=== PATIENT | female | born 1945 | race Hispanic/Latino ===

== ENCOUNTER 2017-12-10 16:55 | Inpatient (IN) | payer OTHER ==
[~2017-12-10] VITALS: Ht 162.6 cm; Wt 88.2 kg
[~2017-12-10 16:55] MED LIST: PERCOCET 5-3251 EACH PO; PREDNISONE20 M1 PO
--- NOTE | 2017-12-10 17:23 | ED GENERAL ADULT ---
History of Present Illness General Chief Complaint: Syncope and Near-Syncope Stated Complaint: BIBA FOR NEAR SYNCOPE Source: patient Exam Limitations: no limitations Allergies Coded Allergies: Sulfa (Sulfonamide Antibiotics) (Severe, SWELLING 11/26/17) Reconcile Medications Atorvastatin Calcium 10 MG TABLET 1 TAB PO DAILY HIGH CHOLESTEROL (Reported) Lisinopril 40 MG TABLET 1 TAB PO DAILY HTN (Reported) Multivit-Min/Iron/Folic/Lutein (Centrum Silver Women Tablet) 8 MG IRON-400 MCG- 300 MCG TABLET 1 TAB PO DAILY SUPPLEMENT (Reported) Triage Nurses Notes Reviewed? 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 Pt was at work and reports she was having difficult walking. Began to feel light headed and felt the numbness become more generalized over her entire body. Denies head, visual changes, head trauma, or prior stroke. No CP, abd pain, or back pain. (Julia Chacon) Vital Signs & Intake/Output Vital Signs & Intake/Output Vital Signs Date Time Temp Pulse Resp B/P B/P Pulse O2 O2 Flow FiO2 Mean Ox Delivery Rate 12/10 2049 97.8 68 16 140/86 99 Room Air 12/11 2019 68 16 142/84 99 Room Air 12/10 2004 97.6 68 16 140/80 99 Room Air 12/10 1950 69 16 140/84 98 Room Air 12/10 1935 Room Air 12/10 1935 73 14 144/86 98 Room Air 12/10 1920 79 18 159/92 98 Room Air 12/10 1905 68 16 140/84 97 Room Air 12/10 1850 69 16 146/78 97 Room Air 12/10 1835 73 16 160/80 98 Room Air 12/10 1815 69 160/90 12/10 1706 94.9 70 20 168/84 98 Room Air (Che JJ,Cedric Kimbrough) Past History Travel History Traveled to [place] past 21 day No Medical History Any Pertinent Medical History? 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 No (Julia Chacon) Review of Systems Review of Systems Constitutional: Reports: no symptoms. EENTM: Reports: no symptoms. Respiratory: Reports: no symptoms. Cardiovascular: Reports: no symptoms. GI: Reports: no symptoms. Genitourinary: Reports: no symptoms. Musculoskeletal: Reports: no symptoms. Skin: Reports: no symptoms. Neurological/Psychological: Reports: see HPI. Hematologic/Endocrine: Reports: no symptoms. Immunologic/Allergic: Reports: no symptoms. (Julia Chacon) Physical Exam Physical Exam General Appearance: well developed/nourished, no apparent distress, alert, awake , comfortable Head: atraumatic, normal appearance Eyes: Bilateral: normal appearance, PERRL, EOMI. Neck: normal inspection Respiratory: normal breath sounds, lungs clear Cardiovascular: regular rate/rhythm Gastrointestinal: soft, non-tender Back: normal inspection Extremities: normal inspection Neurologic/Psych: awake, alert, oriented x 3, normal mood/affect, television receiver analyzer II-XII nml as tested, cerebellar function intact, no sensory deficits no motor deficits to upper extremities or left lower extremity +motor deficit to right lower extremity, unable to lift against gravity Skin: intact, normal color, warm/dry Core Measures ACS in differential dx? No CVA/TIA Diagnosis: Yes NIH Stroke Scale (24 Hours) NIH Stroke Scale (24 Hours) Response Value Level of Consciousness alert 0 LOC Questions answers both correctly 0 LOC Commands obeys both correctly 0 Best Gaze normal 0 Visual Dumont no visual loss 0 Facial Paresis normal 0 Motor Arm - Left no drift 0 Motor Arm - Right no drift 0 Motor Leg - Left no drift 0 Motor Leg - Right no effort against gravity 3 Limb Ataxia no ataxia 0 Sensory normal 0 Best Language no aphasia 0 Dysarthria normal articulation 0 Total 3 Date Last Known Well: 12/10/17 Time Last Known Well: 1600 Symptom start date: 12/10/17 Symptom start time: 1600 Sepsis Present: No Sepsis Focused Exam Completed? No (Julia Chacon) Progress Differential Diagnoses I considered the following diagnoses in my evaluation of the patient: [TIA/CVA vs radiculopathy vs aortic dissection vs metabolic derangement] Initial ED EKG: NSR, no ST T wave changes (Julia Chacon) Plan of Care: Orders Procedure Date/time Status LIPID PANEL 12/11 06 Active Pathway - chart 12/11 2039 Active Vital Signs 12/11 2039 Active Pathway - chart 12/10 2036 Active House Staff 12/10 2036 Active Patient Data 12/10 2036 Active Code Status 12/10 2036 Active Patient Data 12/10 2017 Active Admit to inpatient 12/10 194 Active Turk, Insertion/Removal/Asses 12/10 1938 Active CULTURE,URINE 12/10 193 Active EKG 12/10 1850 Active EKG 12/10 1848 Active FingerStick- Glucose 12/10 1714 Active TROPONIN LEVEL 12/10 171 Complete PARTIAL THROMBOPLASTIN TIME 12/10 171 Complete PROTHROMBIN TIME 12/10 1712 Complete MAGNESIUM 12/10 171 Complete FIBRINOGEN LEVEL 12/10 171 Complete COMPREHENSIVE METABOLIC PANEL 12/10 171 Complete CBC WITHOUT DIFFERENTIAL 12/10 171 Complete EKG 12/10 1702 Active VTE Mechanical Prophylaxis 12/10 UNK Active Vital Signs 12/10 UNK Active Activity/Ambulation 12/10 UNK Active Current Medications Sig/Kelly Start time Last Medication Dose Stop Time Status Admin Aspirin Buffered 81 MG DAILY 12/11 0900 UNVr (Ecotrin) Laboratory Tests 12/10/17 1752: Anion Gap 10, Estimated GFR > 60, BUN/Creatinine Ratio 21.4, Glucose 105 H, Calcium 9.4, Magnesium 2.0, Total Bilirubin 0.4, AST 22, ALT 23, Alkaline Phosphatase 135 H, Troponin I < 0.01, Total Protein 7.0, Albumin 3.8, Globulin 3.2, Albumin/Globulin Ratio 1.2, PT 14.2 H, INR 1.30 H, APTT 30, Fibrinogen Activity 434 H, CBC w Diff NO MAN DIFF REQ, RBC 4.83, MCV 85.1, MCH 28.5, MCHC 33.4, RDW 13.6, MPV 7.4, Gran % 39.2 L, Lymphocytes % 49.5, Monocytes % 8.5, Eosinophils % 2.4, Basophils % 0.4, Absolute Granulocytes 1.8, Absolute Lymphocytes 2.3, Absolute Monocytes 0.4, Absolute Eosinophils 0.1, Absolute Basophils 0 Microbiology 12/10 1944 URINE ROUT: Urine Culture - RECD Initial NIH stroke scale 3 CTA head and neck unremarkable Discussed with Dr. Barfield from neuro who instructed to administered tpa Discussed benefits vs risks with pt and her , both are amenable to tpa, consent signed tpa initiated and shortley after pt began to experience VALLEJO, and abd pain radiating to her chest and back, tpa was shut off, and pt sent for CT head, chest, abd, pelvis. Discussed prelim verbal read with [place] radiology who reported no obvious acute bleeding. Pt now reports gradual self improvement in above symptoms. TPA will remain off. Discussed with hospitalist and will admit to ICU. Discussed with EDMD as well. (Julia Chacon) (Cedric Bolton MD) Departure Departure Disposition: STILL A PATIENT Condition: Stable Clinical Impression Primary Impression: CVA (cerebral vascular accident) Referrals: Patient Has No Primary Care Dr (PCP/Family) Departure Forms: Customer Survey General Discharge Information Admission Note Spoke With: Erin Dougherty MD Documentation of Exam: Documentation of any treatments & extenuating circumstances including Concerns Regarding Discharge (functional status, medication knowledge or non-compliance, living conditions, etc.) that warrant an admission rather than observation: [ serial neuro exams, post TPA monitoring, HD monitoring, neurology eval] (Julia Chacon) PA/TANK HOUSE OPERATOR HELPER Co-Sign Statement Statement: ED Attending supervision documentation- [X] 12/10/2017 6:09:29 PM I saw and evaluated the patient. I have also reviewed all the pertinent lab results and diagnostic results. I agree with the findings and the plan of care as documented in the PA's/TANK HOUSE OPERATOR HELPER's documentation. Patient presents for evaluation of a near syncopal episode followed by right lower extremity numbness and weakness. Symptoms began abruptly 4 PM this afternoon while the patient was at work. She denies any symptoms prior to 4 PM. Physical examination reveals no cranial nerve deficits. Upper extremity examination is normal. Lower extremity examination reveals weakness of the right lower extremity with elevation of the leg off the stretcher. Patient's right foot dorsiflexion is weak compared with the left (4 over 5 with some spasticity) whereas plantar flexion is normal bilaterally., [] I have reviewed the ED Record and agree with the PA's/TANK HOUSE OPERATOR HELPER's documentation. [] Additions or exceptions (if any) to the PAs/TANK HOUSE OPERATOR HELPER's note and plan are summarized below: [] (Che JJ,Cedric Kimbrough) Critical Care Note Critical Care Note Critical Care Time: 75-104 min (Michell PERKINS,Julia)
--- NOTE | 2017-12-10 17:39 | CT SCAN REPORT ---
EXAMINATION: CT HEAD WITHOUT CONTRAST CLINICAL INFORMATION: Right leg weakness. COMPARISON: None TECHNIQUE: Contiguous axial imaging was performed from the skull base to vertex without intravenous administration of contrast. DLP: 605 mGy-cm FINDINGS: Brain parenchyma: No acute findings. Felton-white matter differentiation is well preserved. No evidence of a major vascular territory infarction, hemorrhage, mass or midline shift. No evidence of a dense middle cerebral artery sign or insular ribbon sign. Cerebrospinal fluid spaces: Normal. No hydrocephalus or extra-axial fluid collections. Cerebellum and brainstem: Unremarkable. The 4th ventricle is midline in position. The cerebellopontine angles are normal. Calvarium and temporomandibular joints: Calvarium is intact. Mastoid air cells and middle ear cavities are well aerated. The TMJs are normal. Paranasal sinuses and orbits: The visualized paranasal sinuses are well aerated. The orbits and globes are unremarkable. Other: No acute findings in the visualized extracranial soft tissues. IMPRESSION: No acute intracranial pathology. The negative test result was discussed with Julia Galarza of the Emergency Room at 5:33 PM on 12/10/2017 and it was ascertained that the content of the findings was understood at the time of the direct communication.
[2017-12-10 18:02] LABS: ABSOLUTE BASOPHIL COUNT 0 /CUMM (0.0-0.2); ABSOLUTE EOSINOPHIL COUNT 0.1 /CUMM (0.0-0.7); ABSOLUTE GRANULOCYTE CT 1.8 /CUMM (1.4-6.5); ABSOLUTE LYMPH COUNT 2.3 /CUMM (1.2-3.4); ABSOLUTE MONOCYTE COUNT 0.4 /CUMM (0.10-0.60); BASOPHIL % 0.4 % (0.0-2.0); EOSINOPHIL % 2.4 % (0-5); GRANULOCYTE % 39.2 % (42.2-75.2); HEMATOCRIT 41.1 % (37-47); MEAN CORPUSCULAR HGB 28.5 PG (27.0-31.0); MEAN CORPUSCULAR HGB CONC 33.4 G/DL (33.0-37.0); MEAN CORPUSCULAR VOLUME 85.1 FL (81.0-99.0); MEAN PLATELET VOLUME 7.4 FL (7.4-10.4); PLATELET COUNT 217 /CUMM (130-400); RBC DISTRIBUTION WIDTH 13.6 % (11.5-14.5); RED BLOOD CELL CT 4.83 /CUMM (4.20-5.40); WHITE BLOOD CELL COUNT 4.6 /CUMM (4.8-10.8)
--- NOTE | 2017-12-10 18:09 | CT SCAN REPORT ---
EXAMINATION: CT ANGIOGRAM OF THE HEAD CT ANGIOGRAM OF THE NECK CLINICAL INFORMATION: CVA. Right leg weakness. COMPARISON: Concurrent CT scan of the head 12/10/2017. TECHNIQUE: Test bolus series followed by intravenous administration 95 mL of Optiray 320. Helical imaging was performed in the axial plane from the mediastinum to the skull vertex. The degree of stenosis is based off NASCET criteria. The data was processed at the cytometry technologist workstation for generation of MIP images. Three-dimensional volume rendered reformatted images were also generated at an offline 3-D workstation. DLP: 1757.34 mGy-cm FINDINGS: CT Head: There is no evidence of acute intracranial hemorrhage or territorial infarction. No abnormal mass-effect or midline shift is seen. Bautista to white matter differentiation is well preserved. No extra-axial fluid collections are identified. Mild serpiginous enhancement in the left basal ganglia may be consistent with a small developmental venous anomaly (images 136 through 147/522). There is no other parenchymal or leptomeningeal enhancement. The ventricles are normal in size. There is no abnormal attenuation within the brain parenchyma. There are no acute osseous findings. There is hyperostosis frontalis interna. The mastoid air cells and visualized portions of the paranasal sinuses are well-aerated. CTA Neck: There is a classic configuration of the arch of the aorta. There is mild atheromatous calcification of the posterior aortic arch laterally. The great vessels of the neck are widely patent. The subclavian arteries appear normal bilaterally. The common carotid arteries have normal caliber. There are mild atheromatous calcifications of the distal right common carotid artery. There is no significant stenosis at the left or right carotid bifurcations. The internal carotid arteries in the neck bilaterally have uniform and normal caliber. The origins of both vertebral arteries are well seen and appear normal. Both vertebral arteries are widely patent and demonstrate good opacification throughout their cervical course. The left vertebral artery is slightly dominant. Nonvascular: The left lobe of the thyroid gland is enlarged and has heterogenous density. It measures approximately 3.0 x 2.2 x 4.4 cm in oblique AP, transverse and craniocaudal dimensions. There appears to be a 1.2 x 0.9 cm nodule in the region of the isthmus slightly more caudad. There are multiple surgical clips in the left thyroid bed, consistent sequelae of prior partial thyroidectomy. There is no cervical lymphadenopathy. The visualized upper lung killian are well-aerated. There are moderate spondylitic changes in the cervical spine. CTA Head: There are mild atheromatous calcifications of the cavernous internal carotid arteries bilaterally. The supraclinoid internal carotid arteries and the internal carotid artery bifurcations are unremarkable. The A1 segment of the right anterior cerebral artery is uniformly thin compared to the left, which can be a normal variant. The bilateral middle and left anterior cerebral arteries demonstrate normal caliber with no evidence of focal stenosis, aneurysm or vascular malformation. There is normal arborization of the middle cerebral artery branches. The anterior communicating artery is normal. In the posterior circulation, the left vertebral artery is dominant. The vertebral arteries intradurally have normal caliber. The basilar artery appears normal. The posterior cerebral arteries have normal caliber. The venous sinuses opacify normally. IMPRESSION: 1. There are no acute bleeds or territorial infarcts. No masses are demonstrated. Serpiginous enhancement in the left basal ganglia may be consistent with a developmental venous anomaly. 2. There are no focal stenoses, occlusions or aneurysms in the cervical and intracranial circulations. There is minimal atheromatous calcification. 3. The patient is is status post left hemithyroidectomy. The right lobe of the thyroid gland is enlarged with heterogenous density. A small isthmic thyroid nodule is also noted. Correlate with surgical history.
[2017-12-10 18:14] LABS: PT 14.2 SEC (9.4-12.5); PTT 30 SEC (25-37)
[2017-12-10] MEDS ORDERED: LISINOPRIL40 M1 PO (19:55)
[2017-12-10] MEDS ORDERED: ATORVASTATIN CA10 M1 PO (19:55)
[2017-12-10] MEDS ORDERED: CENTRUM SILVER1 EACH PO (19:57)
--- NOTE | 2017-12-10 20:03 | CT SCAN REPORT ---
EXAMINATION: CT HEAD WITHOUT CONTRAST CLINICAL INFORMATION: Headache status post TPA. Assess for intracranial bleed. COMPARISON: CT head and CTA of the head and neck earlier 12/10/2017. TECHNIQUE: Contiguous axial imaging was performed from the skull base to vertex without intravenous administration of contrast. DLP: 562.47 mGy-cm FINDINGS: There is some residual contrast noted in the vascular structures from the CTA of the head and neck obtained earlier 12/10/2017. There is no evidence of acute intracranial hemorrhage or territorial infarction. No abnormal mass effect or midline shift is seen. Bautista to white matter differentiation is well preserved. No extra-axial fluid collections are identified. The ventricles are normal in size. Small densities are noted in the left basal ganglia and in the posterior right torres radiata, which were present on the prior noncontrast CT scan, likely small calcification. There are no acute osseous findings. There is hyperostosis frontalis interna. The soft tissues are unremarkable. The mastoid air cells and visualized portions of the paranasal sinuses are well aerated. IMPRESSION: 1. There are no acute bleeds. No acute territorial infarcts are demonstrated.
--- NOTE | 2017-12-10 20:09 | CT SCAN REPORT ---
EXAMINATION: CT CHEST, ABDOMEN AND PELVIS WITHOUT CONTRAST CLINICAL INFORMATION: Left upper quadrant pain. Chest pain. Back pain. COMPARISON: None. TECHNIQUE: Multidetector volumetric CT imaging of the chest, abdomen and pelvis was obtained without oral or intravenous contrast. Coronal and sagittal reformatted images performed at CT scanner. Patient was given IV contrast for a CT angiogram prior to this study. DLP: 974.18 mGy-cm. FINDINGS: CT CHEST: Lungs: There is linear scarring at the lung bases bilateral. There is no acute change. There is no infiltrate. Central bronchial airways are open. Mediastinum: No acute abnormality. No hematoma or fluid collection. There is atherosclerotic vascular calcifications of aorta. No significant lymphadenopathy. There is nodular heterogeneity of the right lobe of the thyroid measuring 3.4 x 2.6 cm. Left lobe of the thyroid is surgically absent. Pleura: There is no pleural effusion. No pleural mass or thickening. Axilla: No lymphadenopathy. CT ABDOMEN AND PELVIS: LIVER, GALLBLADDER, AND BILIARY TREE: The liver is normal in size, shape, and attenuation. No focal hepatic lesion or biliary ductal dilatation is present. The gallbladder is unremarkable with no evidence of radiopaque gallstones, gallbladder wall thickening, or obvious pericholecystic inflammatory changes. PANCREAS: No acute change of the pancreas. No mass. No pancreatic duct dilatation. SPLEEN: Spleen normal in size and contour. No focal lesion. ADRENAL GLANDS: Adrenal glands are normal in size. No focal mass. KIDNEYS AND URETERS: The kidneys are normal in size, shape, and attenuation. No hydronephrosis, hydroureter, or calculi seen. No perinephric stranding. There is contrast within the collecting systems of the kidneys and the bladder from the previously injected intravenous contrast. BLADDER: Turk catheter within the bladder. Bladder is nearly empty. No acute abnormality. GASTROINTESTINAL TRACT: There are diverticula of the sigmoid colon and descending colon without diverticulitis. No acute change of the bowel. No bowel obstruction. No bowel wall thickening or edema. Moderate to large-volume of stool throughout the colon. The appendix is not seen. There is no inflammation the mesentery. The small bowel loops are unremarkable. MESENTERY: No focal inflammation. No free fluid. No free air. ABDOMINAL WALL: There is a fat-containing umbilical hernia. The defect at the anterior abdominal wall measures 2 cm transverse. The herniated fat pocket measures 2 x 2 by 2 cm. LYMPH NODES: Normal. VASCULAR: Unremarkable. PELVIC VISCERA: Is atherosclerotic vascular wall calcification of distal aorta and iliac arteries without aneurysm. OSSEOUS STRUCTURES: Multilevel degenerative spondylosis spine with endplate spur and facet joint arthrosis. There is a grade 1 anterolisthesis of L4 on L5 due to facet joint disease. IMPRESSION: 1. No acute abnormality CT of the chest, abdomen or pelvis. 2. Nodular heterogeneity of the right lobe of thyroid. This can be further assessed with thyroid ultrasound. The left lobe of thyroid has been surgically removed.
--- NOTE | 2017-12-10 21:27 | History & Physical ---
Owen JJ,Carrie 12/10/172119: General Information and [facility] MD Statement: I have seen and personally examined BOBBY IRVING and documented this H&P. The patient is a 72 year old F who presented with a patient stated chief complaint of [weakness in the right side of the leg]. Source of Information: patient, family, old records Exam Limitations: no limitations History of Present Illness: Patient is a 72-year-old female with past medical history of hypertension, hyperlipidemia, history of renal cell carcinoma status post partial nephrectomy, coronary artery disease with history of recurrent angina presented with chief complaints of right-sided lower leg weakness. According to the patient she was at work and somebody told that it is now 4:00 and trying to leave. As she walked she felt that she was not able to lift her right leg, it was totally numb and she need to drag it. She took the support of the wall and called her coworker to help her in sitting. She continued to have weakness and later she felt difficulty in breathing and started feeling burning sensation all over inside the body the dizziness. Her coworker called 911 and brought her here. She was having associated headache, dizziness. Of note she also complained that she had nosebleed yesterday which was milder in nature. 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 She denies for any blurry vision, difficulty in swallowing, weakness in upper hand and the left leg, incontinence of the stool in the urine, history of seizures, history of fall or hitting her head. She denies for any history of strokes in the past, fall. Past medical history - Renal cell carcinoma status post partial nephrectomy of the right kidney(2013); repeated ultrasound on 10/13/2017 was normal -(Jayaln Cole MD) History of hyperlipidemia History of hypertension History of coronary artery disease, [place], recurrent angina(2013, 2014, 2015, 2016) -following Dr. Mena; Rashad/Amauri) Right shoulder rotator cuff tear Left leg Achilles tendon repair(February 2017) Hypovitaminosis D (Last 24.7;12/10/2017) Surgical history - History of removal of the cyst from the breast History of hysterectomy 1990 History of right-sided partial nephrectomy 2013 secondary to renal cell carcinoma History of removal of thyroid nodule(15 years ago, at the ) Allergies -sulfa medication leading to swelling and hives Family history -significant for the cancer Mother - of bleeding, secondary to rupture of aneurysm of abdominal aorta Sister-pancreatic cancer, cancer of the lymph node Father-diabetes, hypertension Personal history -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 PCP- Allergies/Medications Allergies: Coded Allergies: Sulfa (Sulfonamide Antibiotics) (Severe, SWELLING 11/26/17) Home Med list Atorvastatin Calcium 10 MG TABLET 1 TAB PO DAILY HIGH CHOLESTEROL (Reported) Lisinopril 40 MG TABLET 1 TAB PO DAILY HTN (Reported) Multivit-Min/Iron/Folic/Lutein (Centrum Silver Women Tablet) 8 MG IRON-400 MCG- 300 MCG TABLET 1 TAB PO DAILY SUPPLEMENT (Reported) Past History Travel History Traveled to [place] past 21 day No Medical History Neurological: NONE EENT: NONE Cardiovascular: hypertension, hyperlipidemia Respiratory: NONE Gastrointestinal: NONE Hepatic: NONE Renal: NONE Musculoskeletal: NONE Psychiatric: NONE Endocrine: hypothyroidism Blood Disorders: NONE Cancer(s): NONE CLINICAL EDUCATOR/Reproductive: NONE Surgical History Surgical History: history of hysterectomy(1990) hx of thyroidectomy (15yrs) Hx of right side partial nephrectomy (2015) Past Family/Social History Family History Relations & Conditions if any SISTER (hx of pancreatic cancer, cancer of lymphnode). MOTHER (hisotry of abdominal aneurysm). FATHER (History of diabetes, hypertension). Review of Systems Review of Systems Constitutional: Reports: no symptoms, weakness. Cardiovascular: Reports: no symptoms. Respiratory: Reports: no symptoms. GI: Reports: abdominal pain. Genitourinary: Reports: no symptoms, pain. Exam & Diagnostic Data Last 24 Hrs of Vital Signs/I&O Vital Signs Date Time Temp Pulse Resp B/P B/P Pulse O2 O2 Flow FiO2 Mean Ox Delivery Rate 12/10 2049 97.8 68 16 140/86 99 Room Air 12/11 2019 68 16 142/84 99 Room Air 12/10 2004 97.6 68 16 140/80 99 Room Air 12/10 1950 69 16 140/84 98 Room Air 12/10 1934 Room Air 12/10 1934 73 14 144/86 98 Room Air 12/10 1920 79 18 159/92 98 Room Air 12/10 1905 68 16 140/84 97 Room Air 12/10 1850 69 16 146/78 97 Room Air 12/10 1835 73 16 160/80 98 Room Air 12/10 1815 69 160/90 12/10 1706 94.9 70 20 168/84 98 Room Air Physical Exam General Appearance Alert, Oriented X3, Cooperative, No Acute Distress HEENT Atraumatic, PERRLA, EOMI Neck Supple, No JVD Cardiovascular Normal S1, Normal S2 Lungs Clear to Auscultation, Normal Air Movement Abdomen Soft, tenderness generalized Neurological Normal Speech, Normal Tone, Sensation Intact, Cranial Nerves 3-12 NL, Reflexes 2+, right lower leg 3/5 Extremities No Clubbing, No Cyanosis, No Edema Vascular Normal Pulses, Pulses Symmetrical Last 24 Hrs of Labs/Jonathan: Laboratory Tests 12/10/17 1752: Anion Gap 10, Estimated GFR > 60, BUN/Creatinine Ratio 21.4, Glucose 105 H, Calcium 9.4, Magnesium 2.0, Total Bilirubin 0.4, AST 22, ALT 23, Alkaline Phosphatase 135 H, Troponin I < 0.01, Total Protein 7.0, Albumin 3.8, Globulin 3.2, Albumin/Globulin Ratio 1.2, PT 14.2 H, INR 1.30 H, APTT 30, Fibrinogen Activity 434 H, CBC w Diff NO MAN DIFF REQ, RBC 4.83, MCV 85.1, MCH 28.5, MCHC 33.4, RDW 13.6, MPV 7.4, Gran % 39.2 L, Lymphocytes % 49.5, Monocytes % 8.5, Eosinophils % 2.4, Basophils % 0.4, Absolute Granulocytes 1.8, Absolute Lymphocytes 2.3, Absolute Monocytes 0.4, Absolute Eosinophils 0.1, Absolute Basophils 0 Microbiology 12/10 1944 URINE ROUT: Urine Culture - RECD Assessment/Plan Assessment: Patient is a 72-year-old female with past medical history of hypertension, hyperlipidemia, history of renal cell carcinoma status post partial nephrectomy, coronary artery disease with history of recurrent angina presented with chief complaints of right-sided lower leg weakness. According to the patient she was at work and somebody told that it is now 4:00 and trying to leave. As she walked she felt that she was not able to lift her right leg, it was totally numb and she need to drag it. She took the support of the wall and called her coworker to help her in sitting. She continued to have weakness and later she felt difficulty in breathing and started feeling burning sensation all over inside the body the dizziness. Her coworker called 911 and brought her here. ED course - Vital signs-temperature 94.9, pulse 70, respiratory 20, blood pressure 168/84, SPO2 98% on room air. Blood workup showed-WBC 4.6, hemoglobin 13.8, hematocrit 41.1, platelet count 217, granulocyte 39.2, sodium 141, potassium 4.2, chloride 102, carbon DEXA 29, anion gap 10, BUN 15, creatinine 0.7, glucose 105, calcium 9.4, magnesium 2.0, total bilirubin 0.4, AST 22, ALT 23, alkaline phosphatase 135, troponin I less than 0.01, albumin 3.8, PT/INR 14.2/1.30, APTT 30, fibrinogen activity 434, CT scan of the head -no any acute intracranial pathology. CT of the neck, head - 1. There are no acute bleeds or territorial infarcts. No masses are demonstrated. Serpiginous enhancement in the left basal ganglia may be consistent with a developmental venous anomaly. 2. There are no focal stenoses, occlusions or aneurysms in the cervical and intracranial circulations. There is minimal atheromatous calcification. 3. The patient is is status post left hemithyroidectomy. The right lobe of the thyroid gland is enlarged with heterogenous density. A small isthmic thyroid nodule is also noted. Correlate with surgical history. Patient was given TPA followed by acute onset of severe abdominal pain radiating to the back and the chest pain, although patient was hemodynamically stable. Patient underwent, CT scan of the head, chest and abdomen-which were negative for any acute hemorrhage. It was decided to admit the patient to the ICU for further evaluation and management. Assessment and plan- Patient is 72-year-old female with multiple risk factor for stroke including hypertension, hyperlipidemia, obesity, history of coronary artery disease, noncompliance with aspirin presented with acute onset of right-sided leg weakness. CT scan was negative for any hemorrhagic stroke. Discussed with neurologist advised for TPA. She was last seen normal at 4 PM and TPA was given around 6:15. After TPA she had sudden onset of pain in the abdomen radiating to back and chest pain. Whole body CT scan was negative for any acute hemorrhage. We admitted the patient to the ICU. After coming to the ICU, she again had episode of slight weakness in the right hand. We advised for neuro check and if get worse than decided to do CT scan of the head to rule out any hemorrhagic transformation. Will follow neurology and cardiology recommendation. We will do routine workup to know the cause of the stroke including echocardiogram, serial EKGs, troponin, repeat MRI in 24 hours. Acute stroke, status post TPA possibly secondary to thromboembolism/ atherosclerotic /cardioembolism. - * We will admit the patient to ICU * Neuro check every 30 minutes for 6 hours followed by 1 hour for 24 hours. * Blood pressure check every 30 minutes for 6 hours followed by 1 hours for 24 hours. Target blood pressure is less than 180/150 if more than that and we will try IV labetalol. * repeat MRI of the head in 24 hours * Patient passed bedside swallow evaluation. We will do a formal swallow evaluation tomorrow * PT/OT * Elevate the head end of the back * Watch for the bleeding * We will start patient on tablet atorvastatin 80 mg daily now and Aspirin 81mg after 24 hrs. * We will check CBC, BMP, PT/PTT, EKG, lipid profile tomorrow * Follow-up echocardiogram. Chronic medical condition hypertension, hyperlipidemia, arthritis - * We will hold antihypertensive for now. * will start patient on high-dose of atorvastatin; tablet atorvastatin 80 mg daily * Avoid NSAIDs * Injection morphine/Dilaudid as needed for the pain. Right-sided systemic thyroid nodule * She will need outpatient thyroid ultrasound for further evaluation and management. Please get the records from [facility] regarding her cardiac evaluation. Diet -regular heart healthy diet DVT prophylaxis -we will avoid ALPS/heparin for next 24 hours CODE STATUS -full code As Ranked By This Provider Problem List: 1. CVA (cerebral vascular accident) 2. Hyperlipidemia 3. Hypertension Core Measures/Misc (03/08) Acute Coronary Syndrome ACS Diagnosis: No Congestive Heart Failure Congestive Heart Failure Diagnosis No Cerebrovascular Accident CVA/TIA Diagnosis: Yes NIH Stroke Scale: Total 2 Date Last Known Well: 12/10/17 Time Last Known Well: 1600 Symptom Start Date: 12/10/17 Symptom Start Time: 1600 Swallow Evaluation Pass Current/Past Hx AFib/AFlutter No Comment TPA was given VTE (View Protocol) VTE Risk Factors Age>40 No Mechanical VTE Prophylaxis d/t N/A MechProphylax Ordered No VTE Pharm Prophylaxis d/t Medical Contraindication (given tpa) Sepsis (View protocol) Sepsis Present: No If YES complete Sepsis Event Note If YES complete Sepsis Event Note Erin Dougherty MD 12/10/17 1837: Core Measures/Misc (03/08) Sepsis (View protocol) If YES complete Sepsis Event Note If YES complete Sepsis Event Note Attending MD Review Statement Attending Statement Attending MD Statement: examined this patient, discuss w/resident/PA/LICENSED LAND SURVEYOR, agreed w/resident/PA/LICENSED LAND SURVEYOR, reviewed EMR data (avail) Attending Assessment/Plan: 72F PMH HTN, HLD, CAD, hypothyroidism presenting with acute onset of right leg weakness. Was in her usual state of health when she suddenly felt as if she was dragging her right leg and could not move it. She soon after felt chest tightnesss and lighteaded, and 911 was called by coworker. In ER, her right leg had 0/5 strength, per ER provider. Sensation was intact, and neuro exam was otherwise intact. Decision was made to give patient tPA. CTA head and neck were negative. tPA bolus was given. After 30 minutes of tPA infusion, patient experienced mid-sternal chest pain without radiation and headache that she described as when she takes nitro-glycerin. tPA was then stopped. When seen by me, patient reported chest pain and headache resolved. Her only complaint at this time is right leg weakness, which is mildly improved but still persists. She has 4/5 strength on platar and dorsiflexion, but is unable to flex at the thigh or knee, though she is able to move her leg while on the bed, which is an improvement from earlier. Sensation and reflexes are intact. Cranial nerves and remaining extremity exam is intact. Cerebellar tests normal. Gait deferred. Labs reviewed, EKG NSR. 1. Acute ischemic tPA 2. Right leg paralaysis 3. History of CAD Plan - Admit to ICU - Vitals and neuro checks per tPA protocol - No blood draws or sticks for 24 hours - Continue statin - Passed bedside swallow - Neurology consult - MRI head - If any change in symptoms or mental status obtain stat head CT to evaluate for hemorrhage
[2017-12-10 22:00] VITALS: BP 140/80
--- NOTE | 2017-12-10 23:25 | Admission Certification ---
Admission Certification Certification Statement - As attending physician, I certify that at the time of - admission, based on clinical presentation, severity of - symptoms, need for further diagnostic testing and - therapeutic interventions, and risk of adverse outcomes - without in-hospital treatment, in my clinical assessment, - this patient requires an acute hospital stay for a minimum - of two nights or longer. I have also considered psychsocial - factors such as support system, advanced age, financial - issues, cognitive issues, and failed out-patient treatments, - past re-admission history, safety of patient, and lack of - compliance as applicable. Specific rationale supporting this admission is: Stroke s/p tPA
[2017-12-11] VITALS: BP 150/90
[2017-12-11 06:30] LABS: ABSOLUTE BASOPHIL COUNT 0 /CUMM (0.0-0.2); ABSOLUTE EOSINOPHIL COUNT 0.1 /CUMM (0.0-0.7); ABSOLUTE GRANULOCYTE CT 1.7 /CUMM (1.4-6.5); ABSOLUTE LYMPH COUNT 1.8 /CUMM (1.2-3.4); ABSOLUTE MONOCYTE COUNT 0.4 /CUMM (0.10-0.60); BASOPHIL % 0.5 % (0.0-2.0); EOSINOPHIL % 2.8 % (0-5); GRANULOCYTE % 42.6 % (42.2-75.2); HEMATOCRIT 38.6 % (37-47); MEAN CORPUSCULAR HGB 28.7 PG (27.0-31.0); MEAN CORPUSCULAR HGB CONC 33.5 G/DL (33.0-37.0); MEAN CORPUSCULAR VOLUME 85.6 FL (81.0-99.0); MEAN PLATELET VOLUME 7.2 FL (7.4-10.4); PLATELET COUNT 191 /CUMM (130-400); RBC DISTRIBUTION WIDTH 13.4 % (11.5-14.5); RED BLOOD CELL CT 4.51 /CUMM (4.20-5.40); WHITE BLOOD CELL COUNT 3.9 /CUMM (4.8-10.8)
[2017-12-11 06:37] LABS: PT 14.2 SEC (9.4-12.5); PTT 30 SEC (25-37)
--- NOTE | 2017-12-11 07:17 | Cons- CRCU ---
Bronson Farmer 12/11/17 0716: General Information and HPI Consulting Request Date of Consult: 12/11/17 Requested By: Dr MACHUCA Reason for Consult: CVA post TPA Source of Information: patient Exam Limitations: no limitations History of Present Illness: This is a 72-year-old female with past medical history of hypertension, hyperlipidemia, history of renal cell carcinoma status post partial nephrectomy, coronary artery disease with history of 3 previous heart attacks for which she was admitted to [facility] and reports to have had cardiac catheterization without stent placement. She was on aspirin and brillinta but they stopped brillinta in 2016 and she is not compliant on her aspirin. She presented to [facility] with sudden onset of right-sided lower leg weakness. According to the patient she was at work and somebody told her that it is was 4: 00PM time to leave when she noted that she could not move her right lower limb and trying to leave. As she walked she felt that she was not able to lift her right leg, it was totally numb and she need to drag it. She took the support of the wall and called her coworker to help her in sitting. She continued to have weakness and later she felt difficulty in breathing and started feeling burning sensation all over inside the body the dizziness. On the same time she felt weakness on her right upper limp. She denies experiencing this kind of episode before and denies any blood in her vision, inability to speak, aspiration on her saliva or weakness on the face. Allergies/Medications Allergies: Coded Allergies: Sulfa (Sulfonamide Antibiotics) (Severe, SWELLING 11/26/17) Home Med List: Atorvastatin Calcium 10 MG TABLET 1 TAB PO DAILY HIGH CHOLESTEROL (Reported) Lisinopril 40 MG TABLET 1 TAB PO DAILY HTN (Reported) Multivit-Min/Iron/Folic/Lutein (Centrum Silver Women Tablet) 8 MG IRON-400 MCG- 300 MCG TABLET 1 TAB PO DAILY SUPPLEMENT (Reported) Review of Systems Review of Systems Constitutional: Denies: chills, fever. EENTM: Denies: no symptoms. Cardiovascular: Denies: chest pain, palpitations. Respiratory: Denies: cough, short of breath. GI: Denies: abdominal pain, nausea, vomiting. Genitourinary: Denies: no symptoms. Musculoskeletal: Reports: muscle stiffness. Skin: Denies: no symptoms. Neurological/Psychological: Denies: no symptoms. Hematologic/Endocrine: Denies: no symptoms. 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 MOTHER (hisotry of abdominal aneurysm). FATHER (History of diabetes, hypertension). Psychosocial History Where Do You Live? Home Smoking Status: Former Smoker Functional Ability ADLs Independent: dressing, eating, toileting, bathing. Ambulation: independent IADLs Independent: shopping, housework, finances, food prep, telephone, transportation , medication admin. Employment History Employment: Employed Exam & Diagnostic Data Last 24 Hrs of Vital Signs/I&O Vital Signs Date Time Temp Pulse Resp B/P B/P Pulse O2 O2 Flow FiO2 Mean Ox Delivery Rate 12/11 0400 98 Room Air 12/11 0000 97.3 66 17 150/90 100 Room Air 12/108 98 Room Air 12/100 97.2 58 26 140/80 99 Room Air 12/100 69 18 144/84 99 Room Air 12/100 97.8 68 16 140/86 99 Room Air 12/11 2019 68 16 142/84 99 Room Air 12/10 2004 97.6 68 16 140/80 99 Room Air 12/10 1950 69 16 140/84 98 Room Air 12/10 1935 Room Air 12/10 1935 73 14 144/86 98 Room Air 12/10 1920 79 18 159/92 98 Room Air 12/10 1905 68 16 140/84 97 Room Air 12/10 1850 69 16 146/78 97 Room Air 12/10 1835 73 16 160/80 98 Room Air 12/10 1815 69 160/90 12/10 1706 94.9 70 20 168/84 98 Room Air Intake & Output 12/11 1600 12/11 0800 12/11 0000 Intake Total 120 0 Output Total 300 650 Balance -180 -650 Intake, IV 0 0 Intake, Oral 120 0 Number 0 0 Bowel Movements Output, Urine 300 650 Patient 189 lb Weight Weight Bed scale Measurement Method Physical Exam General Appearance: well developed/nourished, no apparent distress, alert, awake Head: atraumatic, normal appearance Eyes: Bilateral: normal appearance, PERRL, EOMI (contact lens). Ears, Nose, Throat: normal pharynx, normal ENT inspection Neck: normal inspection, supple Respiratory: normal breath sounds, chest non-tender, no respiratory distress Cardiovascular: regular rate/rhythm Peripheral Pulses: 2+ brachial (R), 2+ brachial (L), 2+ radial (R), 2+ radial (L) Gastrointestinal: normal bowel sounds, soft, non-tender Extremities: normal inspection, normal capillary refill, no edema Neurologic/Psych: awake, alert, oriented x 3, patient has grade 3 power in the right lower limb with mixed contraction able to overcome gravity but not able to overcome additional resistance the right upper limb has grade 4 power were she can move against gravity and can resist some resistant, Intact sensation on both upper and lower limbs Cranial Nerves: normal hearing, normal speech, PERRL Last 48 Hrs of Labs/Jonathan: Laboratory Tests 12/11/17 0620: Anion Gap 8, Estimated GFR > 60, Glucose 107 H, Calcium 9.2, Phosphorus 4.8 H, Magnesium 1.9, Total Bilirubin 0.4, AST 19, ALT 21, Troponin I < 0.01, Albumin 3.4 L, Triglycerides 119, Cholesterol 164, LDL Cholesterol, Calc 66, HDL Cholesterol 75 H, Cholesterol/HDL Ratio 2, PT 14.2 H, INR 1.30 H, APTT 30, CBC w Diff NO MAN DIFF REQ, RBC 4.51, MCV 85.6, MCH 28.7, MCHC 33.5, RDW 13.4, MPV 7.2 L, Gran % 42.6, Lymphocytes % 44.9, Monocytes % 9.2, Eosinophils % 2.8, Basophils % 0.5, Absolute Granulocytes 1.7, Absolute Lymphocytes 1.8, Absolute Monocytes 0.4, Absolute Eosinophils 0.1, Absolute Basophils 0 12/10/17 1752: Anion Gap 10, Estimated GFR > 60, BUN/Creatinine Ratio 21.4, Glucose 105 H, Calcium 9.4, Magnesium 2.0, Total Bilirubin 0.4, AST 22, ALT 23, Alkaline Phosphatase 135 H, Troponin I < 0.01, Total Protein 7.0, Albumin 3.8, Globulin 3.2, Albumin/Globulin Ratio 1.2, PT 14.2 H, INR 1.30 H, APTT 30, Fibrinogen Activity 434 H, CBC w Diff NO MAN DIFF REQ, RBC 4.83, MCV 85.1, MCH 28.5, MCHC 33.4, RDW 13.6, MPV 7.4, Gran % 39.2 L, Lymphocytes % 49.5, Monocytes % 8.5, Eosinophils % 2.4, Basophils % 0.4, Absolute Granulocytes 1.8, Absolute Lymphocytes 2.3, Absolute Monocytes 0.4, Absolute Eosinophils 0.1, Absolute Basophils 0 Diagnostic Data Other Results Head CTA: 1. There are no acute bleeds or territorial infarcts. No masses are demonstrated. Serpiginous enhancement in the left basal ganglia may be consistent with a developmental venous anomaly. 2. There are no focal stenoses, occlusions or aneurysms in the cervical and intracranial circulations. There is minimal atheromatous calcification. 3. The patient is is status post left hemithyroidectomy. The right lobe of the thyroid gland is enlarged with heterogenous density. A small isthmic thyroid nodule is also noted. Correlate with surgical history. Assessment/Plan CRCU Impression/Plan: This is a 72-year-old female with multiple risk factor for stroke including hypertension, hyperlipidemia, obesity, history of coronary artery disease, noncompliance with aspirin presented with acute onset of right-sided leg weakness. CT scan was negative for any hemorrhagic stroke. She was started on TPA after presenting with within the window for TPA. Patient received the bolus of TPA 7.56 mg today and while was on the infusion around 68 mg in 68 mL of solution they stopped at 30 mL parish after she had sudden onset of pain in the abdomen radiating to back and chest pain. Patient reports that she felt relief when TPA was stopped and did not want to continue. Whole body CT scan was negative for any acute hemorrhage. She was admitted to the intensive care unit and we managed her as follows: Neuro Cerebrovascular accident status post TPA Patient had neurology input in the ER and will be seen by neurologist today will follow-up neurologist recommendations. Patient will be due for 24 hours post TPA imaging today at 6 PM. Routine workup including echocardiogram and serial EKGs and troponins She has extensive cardiac history with frequent catheterizations after what she is describing as acute coronary event but without stents placement, we have requested medical records from [facility]. Patient passed bedside swallow evaluation and has been started on oral feeds taking and tolerating well but will get a formal swallow evaluation today PT/OT evaluation today Avoid aspirin for 24 hours Cardiology consult placed with Dr. Chaudhary Cardiovascular Patient with history of hypertension and this morning blood pressure on the higher side 160/100 Have restarted her home medication of lisinopril 40 mg daily Continue to monitor blood pressure First 2 troponins are negative was 0.01, and no EKG changes observed Continue to monitor for arrhythmias Respiratory Patient breathing and saturating well on room air No respiratory issues Metabolic Patient has normal electrolyte values He has normal calcium and magnesium despite reporting muscle cramps which she has been getting prior to presentation Patient has been on atorvastatin 10 mg daily and a lipid profile is impressive with total cholesterol of 164 LDL of 66 and HDL 75, will discuss with electric relay tester if we need to make her high intensity starting increasing atorvastatin probably to 40 mg daily Recommendations: Outlined on the impression and plan Problem List: 1. Hyperlipidemia 2. Hypertension 3. CVA (cerebral vascular accident) 4. Coronary artery disease Consult Acknowledgment - Thank you for your consult request. Josue Soares MD 12/11/17 0859: Assessment/Plan CRCU Other Findings/Comments: Josue Butler M.D. have examined this patient, reviewed available EMR data, personally reviewed images, discussed with resident/PA/SCIENTIFIC PHOTOGRAPHER, discussed management plan with housestaff and nursing staff, discussed managment plan all of healthcare providers, discussed management plan with patient and/or family, agreed with resident/PA/SCIENTIFIC PHOTOGRAPHER. The past history and parts of the chart have been autopopulated. Impression 72 year old woman * acute ischemia CVA s/p tPA (1/2 dose given, pt had a "reaction"-see chart) * hx of CAD * tachycardia overnight Plan -hemodynamic monitoring and neuro checks per tPA protocol -imaging today - MRI is available at 3pm, will pursue -neurology and cardiology consultations DVT prophylaxis at all times (ALPS for now given tPA) TTS 40 min Consult Acknowledgment - Thank you for your consult request.
[2017-12-11 08:00] VITALS: BP 164/100
[2017-12-11 12:00] VITALS: BP 160/90
--- NOTE | 2017-12-11 14:57 | Cons- Neurology ---
See Addendum General Information and HPI Consulting Request Date of Consult: 12/11/17 Requested By: Erin Dougherty MD History of Present Illness: 72 year female yesterday had sudden onset of weakness in the right lower extremity She was at work and closing up She noted suddenly that she had difficulty walking and could not feel her right foot She had to hold on and noted that when walking she was dragging the right lower extremity There was no pain and she did not note any difficulty with speech She is a right-handed individual She required some help to sit down Sometime afterwards she noted heaviness in the right upper extremity She noted difficulty with use of the right upper extremity afterwards She did not have any swelling or visual change or dysarthria She had no similar symptoms in the past In the ED she was given TPA She has not noted any change in her status She did have a modest headache at the time TPA could not be completed since patient developed chest pains and the TPA was then discontinued, patient believes at about half of the TPA was administered Allergies/Medications Allergies: Coded Allergies: Sulfa (Sulfonamide Antibiotics) (Severe, SWELLING 11/26/17) Home Med List: Atorvastatin Calcium 10 MG TABLET 1 TAB PO DAILY HIGH CHOLESTEROL (Reported) Lisinopril 40 MG TABLET 1 TAB PO DAILY HTN (Reported) Multivit-Min/Iron/Folic/Lutein (Centrum Silver Women Tablet) 8 MG IRON-400 MCG- 300 MCG TABLET 1 TAB PO DAILY SUPPLEMENT (Reported) Current Medications: Current Medications Sig/Kelly Start time Last Medication Dose Route Stop Time Status Admin Acetaminophen 1,000 MG ONCE ONE 12/10 1914 DC 12/10 IV 12/10 Acetaminophen 0 .STK-MED ONE 12/10 1901 DC IV Alteplase, 7.56 MG BOLUS ONE 12/10 1814 DC 12/10 Recombinant IV 12/10 Altepjean mariee, 68.04 MG ONCE ONE 12/10 1814 DC 12/10 Recombinant IV 12/10 Alteplase, 0 .STK-MED ONE 12/10 1754 DC Recombinant IV Amlodipine Besylate 5 MG DAILY 12/11 1300 AC 12/11 PO 1253 Aspirin Buffered 81 MG 2100 12/11 2100 AC PO Aspirin Buffered 81 MG DAILY 12/11 0900 DC PO Atorvastatin Calcium 80 MG 1700 12/11 1700 AC PO Lisinopril 40 MG DAILY 12/11 0835 AC 12/11 PO 0936 Review of Systems Review of Systems: Headache has improved No diplopia No weight change Chest pain improved No significant shortness of breath No nausea or vomiting No fevers No head trauma No incontinence No weakness left upper or lower extremity No significant swelling lower extremities Usually no imbalance Usually walks independently Other systems reviewed and negative Past History Travel History Traveled to [place] past 21 day No Medical History Blood Transfusion Hx: No Neurological: NONE EENT: NONE Cardiovascular: hypertension, hyperlipidemia Respiratory: NONE Gastrointestinal: NONE Hepatic: NONE Renal: nephrectomy, R PARTIAL NEPHECTOMY Musculoskeletal: ARTHRITIS Psychiatric: NONE Endocrine: hypothyroidism Blood Disorders: NONE Cancer(s): renal cancer, R PARTIAL NEPHRECTOMY 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 MOTHER (hisotry of abdominal aneurysm). FATHER (History of diabetes, hypertension). Psychosocial History Where Do You Live? Home Smoking Status: Former Smoker Functional Ability ADLs Independent: dressing, eating, toileting, bathing. Ambulation: independent IADLs Independent: shopping, housework, finances, food prep, telephone, transportation , medication admin. Employment History Employment: Employed Exam & Diagnostic Data Vital Signs and I&O Vital Signs Date Time Temp Pulse Resp B/P B/P Pulse O2 O2 Flow FiO2 Mean Ox Delivery Rate 12/11 1253 73 170/98 12/11 1200 95 12/11 1200 97.4 65 16 160/90 95 Room Air 12/11 0800 98.4 59 14 164/100 97 Room Air 12/11 0800 97 Room Air 12/11 0400 98 Room Air 12/11 0000 97.3 66 17 150/90 100 Room Air 12/10 2258 98 Room Air 12/100 97.2 58 26 140/80 99 Room Air 12/10 2149 69 18 144/84 99 Room Air 12/10 2049 97.8 68 16 140/86 99 Room Air 12/11 2019 68 16 142/84 99 Room Air 12/10 2004 97.6 68 16 140/80 99 Room Air 12/10 1950 69 16 140/84 98 Room Air 12/10 1934 Room Air 06/21 1935 73 14 144/86 98 Room Air 12/10 1920 79 18 159/92 98 Room Air 12/10 1905 68 16 140/84 97 Room Air 12/10 1850 69 16 146/78 97 Room Air 12/10 1835 73 16 160/80 98 Room Air 12/10 1815 69 160/90 12/10 1706 94.9 70 20 168/84 98 Room Air Intake & Output 12/11 1600 12/11 0800 12/11 0000 Intake Total 860 120 0 Output Total 850 300 650 Balance 10 -180 -650 Intake, IV 20 0 0 Intake, Oral 840 120 0 Number 0 0 Bowel Movements Output, Urine 850 300 650 Patient 189 lb Weight Weight Bed scale Measurement Method Physical Exam: Alert and oriented Language functions fund of knowledge attention span concentration recall intact Heart sounds normal no carotid bruits distal pulses intact Extraocular movements full, pupils equal reactive, fundi benign, visual killian intact, no facial weakness or facial sensory loss, palate tongue and shoulders intact, hearing grossly intact Normal tone and strength upper and lower extremities Mild drift right upper extremity and fine motor movement difficulty in right hand Right lower extremity shows hip flexion weakness Sensory examination diminished light touch sensation but not to position sense Coordinative functions right upper extremity showed difficulty with rapid alternating movements gait evaluation deferred since patient is recently at bedrest after TPA administration Last 48 Hours of Lab Results: Laboratory Tests 12/11 12/10 0620 1752 Chemistry Sodium (137 - 145 mmol/L) 142 141 Potassium (3.5 - 5.1 mmol/L) 3.9 4.2 Chloride (98 - 107 mmol/L) 106 102 Carbon Dioxide (22 - 30 mmol/L) 29 29 Anion Gap (5 - 16) 8 10 BUN (7 - 17 mg/dL) 14 15 Creatinine (0.5 - 1.0 mg/dL) 0.7 0.7 Estimated GFR (>60 ml/min) > 60 > 60 BUN/Creatinine Ratio (7 - 25 %) 21.4 Glucose (65 - 99 mg/dL) 107 H 105 H Calcium (8.4 - 10.2 mg/dL) 9.2 9.4 Phosphorus (2.5 - 4.5 mg/dL) 4.8 H Magnesium (1.6 - 2.3 mg/dL) 1.9 2.0 Total Bilirubin (0.2 - 1.3 mg/dL) 0.4 0.4 AST (14 - 36 U/L) 19 22 ALT (9 - 52 U/L) 21 23 Alkaline Phosphatase (<127 U/L) 135 H Troponin I (< 0.11 ng/ml) < 0.01 < 0.01 Total Protein (6.3 - 8.2 g/dL) 7.0 Albumin (3.5 - 5.0 g/dL) 3.4 L 3.8 Globulin (1.9 - 4.2 gm/dL) 3.2 Albumin/Globulin Ratio (1.1 - 2.2 %) 1.2 Triglycerides (<150 mg/dL) 119 Cholesterol (<200 MG/DL) 164 LDL Cholesterol, Calc (65 - 129 mg/dL) 66 HDL Cholesterol (40 - 60 mg/dL) 75 H Cholesterol/HDL Ratio (0.00 - 4.23 %) 2 Coagulation PT (9.4 - 12.5 SEC) 14.2 H 14.2 H INR (0.90 - 1.19) 1.30 H 1.30 H APTT (25 - 37 SEC) 30 30 Fibrinogen Activity (200 - 393 MG/DL) 434 H Hematology CBC w Diff NO MAN DIFF REQ NO MAN DIFF REQ WBC (4.8 - 10.8 /CUMM) 3.9 L 4.6 L RBC (4.20 - 5.40 /CUMM) 4.51 4.83 Hgb (12.0 - 16.0 G/DL) 12.9 13.8 Hct (37 - 47 %) 38.6 41.1 MCV (81.0 - 99.0 FL) 85.6 85.1 MCH (27.0 - 31.0 PG) 28.7 28.5 MCHC (33.0 - 37.0 G/DL) 33.5 33.4 RDW (11.5 - 14.5 %) 13.4 13.6 Plt Count (130 - 400 /CUMM) 191 217 MPV (7.4 - 10.4 FL) 7.2 L 7.4 Gran % (42.2 - 75.2 %) 42.6 39.2 L Lymphocytes % (20.5 - 51.1 %) 44.9 49.5 Monocytes % (1.7 - 9.3 %) 9.2 8.5 Eosinophils % (0 - 5 %) 2.8 2.4 Basophils % (0.0 - 2.0 %) 0.5 0.4 Absolute Granulocytes (1.4 - 6.5 /CUMM) 1.7 1.8 Absolute Lymphocytes (1.2 - 3.4 /CUMM) 1.8 2.3 Absolute Monocytes (0.10 - 0.60 /CUMM) 0.4 0.4 Absolute Eosinophils (0.0 - 0.7 /CUMM) 0.1 0.1 Absolute Basophils (0.0 - 0.2 /CUMM) 0 0 Imaging/Other Studies: CT brain IMPRESSION: 1. There are no acute bleeds. No acute territorial infarcts are demonstrated. Assessment/Plan Assessment: Cerebrovascular accident likely lacunar Recommendations: MRI scan of brain Venodyne boots Resume aspirin tomorrow Carotid ultrasound Physical and occupational therapies Dependent on status may require rehabilitation on either outpatient or inpatient Cardiac evaluation Consult Acknowledgment - Thank you for your consult request.
[2017-12-11 16:00] VITALS: BP 132/80
--- NOTE | 2017-12-11 16:12 | MRI REPORT ---
EXAMINATION: MR BRAIN WITHOUT CONTRAST CLINICAL INFORMATION: Weakness and right lower extremity. Cerebrovascular accident status post tPA. COMPARISON: CT scan of the head 12/10/2017. TECHNIQUE: MRI of the brain without contrast was obtained using routine sequences. FINDINGS: There is a small acute infarct involving the left thalamus best illustrated on axial DWI image 57 of 66 series 3. No pathological magnetic susceptibility artifact. Intracranial vascular flow voids are grossly maintained. A few scattered nonspecific foci of T2 FLAIR signal hyperintensity visualized within the periventricular white matter. There is no intracranial mass effect or midline shift. Lateral and third ventricles are proportionate to the subarachnoid spaces. No hydrocephalus. Midline structures including the cervicomedullary junction are normal. Bone marrow signal intensity is normal. There are small mastoid effusions. Mild paranasal sinus disease primarily affecting the ethmoid air cells. Globes and orbits are symmetric. IMPRESSION: Small acute infarct involving the left thalamus. This acute finding superimposed upon a few scattered chronic small vessel ischemic changes within the periventricular white matter. No evidence of acute hemorrhage.
--- NOTE | 2017-12-11 16:36 | ULTRASOUND REPORT ---
EXAMINATION: DUPLEX BILATERAL CAROTID ULTRASOUND CLINICAL INFORMATION: Right lower extremity weakness. COMPARISON: CT of the neck 12/10/2017 TECHNIQUE: Duplex bilateral carotid US was performed using real-time ultrasound and Doppler techniques (integrating B-mode 2D vascular images, Doppler spectral analysis and color flow Doppler imaging). These techniques were utilized to interrogate the extracranial carotid and vertebral arteries bilaterally. The degree of stenosis is based off criteria similar to NASCET. FINDINGS: 1. On the right: Plaque is present at the carotid bifurcation but velocity measurements are normal and do not suggest a stenosis of greater than 50% diameter reduction in the right ICA. The vertebral artery is patent demonstrating antegrade flow. 2. On the left: Plaque is present at the carotid bifurcation but velocity measurements are normal and do not suggest a stenosis of greater than 50% diameter reduction in the left ICA. The vertebral artery is patent demonstrating antegrade flow. The external carotid arteries appear unremarkable. Heterogeneous right thyroid nodule. IMPRESSION: Plaque is present in the internal carotid arteries but velocity measurements are normal and there is no evidence to suggest a hemodynamically significant stenosis of greater than 50% diameter reduction. Right thyroid nodule. Recommend nonurgent dedicated thyroid ultrasound for further evaluation.
--- NOTE | 2017-12-11 16:48 | ECHOCARDIOGRAM REPORT ---
BOBBY IRVING Age: 72 : 1945 Gender: F Exam Date: 12/11/2017 07:58 Exam Location: [facility] Ht (in): 64 Wt (lb): 185 BSA: 1.98 BP: 164 / 100 Ordering Physician: Izabella Weaver MD Referring Physician: Izabella Weaver MD Technologist: Alcon Ocasio FROY Room Number: Indications: STROKE Rhythm: Sinus Technical Quality: good FINDINGS Left Ventricle Normal left ventricular size, wall thickness and systolic function with no obvious regional wall motion abnormalities. Abnormal relaxation filling pattern of the left ventricle for age (stage 1 diastolic dysfunction). The ejection fraction is visually estimated at 65 %. Right Ventricle The right ventricle is normal in size and function. Right Atrium The right atrium is normal in size. Left Atrium The left atrium is enlarged. The interatrial septum is intact. Mitral Valve The mitral valve is normal in structure and function. There is trace mitral regurgitation. Aortic Valve Structurally normal aortic valve without significant sclerosis or stenosis. There is mild aortic regurgitation. Tricuspid Valve The tricuspid valve is normal in structure and function. There is mild tricuspid regurgitation. Pulmonary artery systolic pressure is elevated, estimated at 40-45 mmHg. Pulmonic Valve Structurally normal pulmonic valve. There is trace pulmonic regurgitation. Pericardium Normal pericardium without effusion. No pleural effusion. Great Vessels Normal aortic root dimension. The aortic arch and great vessels are well seen and are normal. CONCLUSIONS Normal left ventricular size, wall thickness and systolic function with no obvious regional wall motion abnormalities. Abnormal relaxation filling pattern of the left ventricle for age (stage 1 diastolic dysfunction). The ejection fraction is visually estimated at 65 %. The left atrium is enlarged. There is trace mitral regurgitation. There is mild aortic regurgitation. There is mild tricuspid regurgitation. Pulmonary artery systolic pressure is elevated, estimated at 40-45 mmHg. There is trace pulmonic regurgitation. Normal pericardium without effusion. Normal aortic root dimension. The interatrial septum is intact. Srikanth Gilmore M.D. (Electronically Signed) Final Date: 11 December 2017 16:47 MEASUREMENTS (Male / Female) Normal Values 2D ECHO LV Diastolic Diameter PLAX 5.2 cm 4.2 - 5.9 / 3.9 - 5.3 cm LV Systolic Diameter PLAX 3.0 cm 2.1 - 4.0 cm LV Fractional Shortening PLAX 42.3 % 25 - 46 % LV Ejection Fraction 2D Teich 73.0 % IVS Diastolic Thickness 1.0 cm LVPW Diastolic Thickness 1.1 cm LV Relative Wall Thickness 0.4 RV Internal Dim ED PLAX 3.3 cm 1.9 - 3.8 cm LVOT Diameter 2.0 cm Aortic Root Diameter 3.0 cm LA Systolic Diameter LX 3.3 cm 3.0 - 4.0 / 2.7 - 3.8 cm LA Volume 63.0 cm 18 - 58 / 22 - 52 cm Ascending Aorta Diameter 3.4 cm DOPPLER AV Peak Velocity 145.0 cm/s AV Peak Gradient 8.4 mmHg AV Mean Velocity 99.5 cm/s AV Mean Gradient 4.0 mmHg AV Velocity Time Integral 34.9 cm AI Deceleration Benzie 238.0 cm/s AI Peak Velocity 506.0 cm/s AI Pressure Half Time 623.0 ms AI Peak Gradient 102.4 mmHg LVOT Peak Velocity 95.5 cm/s LVOT Peak Gradient 3.6 mmHg LVOT Mean Velocity 55.5 cm/s LVOT Mean Gradient 2.0 mmHg LVOT Velocity Time Integral 20.5 cm LVOT Stroke Volume 64.4 cm AV Area Cont Eq vti 1.8 cm AV Area Cont Eq pk 2.1 cm MV Peak Velocity 99.2 cm/s MV Peak Gradient 3.9 mmHg MV Mean Velocity 66.8 cm/s MV Mean Gradient 2.0 mmHg Mitral E Point Velocity 85.9 cm/s Mitral A Point Velocity 91.3 cm/s Mitral E to A Ratio 0.9 MV PHT Velocity 99.9 cm/s MV Deceleration Benzie 171.0 cm/s MV Pressure Half Time 175.3 ms MV Area PHT 1.3 cm MV Deceleration Time 225.0 ms TR Peak Velocity 308.0 cm/s TR Peak Gradient 37.9 mmHg Right Atrial Pressure 5.0 mmHg Pulmonary Artery Systolic Pressu 42.9 mmHg Right Ventricular Systolic Press 42.9 mmHg PV Peak Velocity 78.6 cm/s PV Peak Gradient 2.5 mmHg PV Mean Velocity 58.3 cm/s PV Mean Gradient 2.0 mmHg PV Velocity Time Integral 23.7 cm LV E' Lateral Velocity 9.7 cm/s Mitral E to LV E' Lateral Ratio 8.9 LV E' Septal Velocity 5.9 cm/s Mitral E to LV E' Septal Ratio 14.7
--- NOTE | 2017-12-11 18:04 | Cons- Cardiology ---
General Information and HPI Consulting Request Date of Consult: 12/11/17 Requested By: Erin Dougherty MD History of Present Illness: Ms. Dan is a 72 year old female with history of hypertension, dyslipidemia and coronary artery disease s/p MS. She has undergone a prior PTCA without stent placement. She also carries a history of renal cell carcinoma status post partial nephrectomy. The patient presented to the ER for evaluation of right leg weakness associated with a numb sensation that necessitated her dragging her leg as she walked. The patient subsequently noted some difficulty with breathing, dizziness and a paresthesia all over her body that felt like a burning sensation. In response to findings of an acute stroke the patient received TPA which was stopped prior to the entire infusion being delivered due to chest pain that was attributed to this medication. The discomfort was of moderate intensity and radiated toward her left arm. It has resolved. She continues to report some shortness of breath and lightheadedness but denies any palpitations. Workup included an MRI of the head showing a small thalamic acute infarct. Allergies/Medications Allergies: Coded Allergies: Sulfa (Sulfonamide Antibiotics) (Severe, SWELLING 11/26/17) Home Med List: Atorvastatin Calcium 10 MG TABLET 1 TAB PO DAILY HIGH CHOLESTEROL (Reported) Lisinopril 40 MG TABLET 1 TAB PO DAILY HTN (Reported) Multivit-Min/Iron/Folic/Lutein (Centrum Silver Women Tablet) 8 MG IRON-400 MCG- 300 MCG TABLET 1 TAB PO DAILY SUPPLEMENT (Reported) Review of Systems Review of Systems: headache Past History Travel History Traveled to [place] past 21 day No Medical History Blood Transfusion Hx: No Neurological: NONE EENT: NONE Cardiovascular: hypertension, hyperlipidemia Respiratory: NONE Gastrointestinal: NONE Hepatic: NONE Renal: nephrectomy, R PARTIAL NEPHECTOMY Musculoskeletal: ARTHRITIS Psychiatric: NONE Endocrine: hypothyroidism Blood Disorders: NONE Cancer(s): renal cancer, R PARTIAL NEPHRECTOMY [employer] 2ND SHIFT/Reproductive: 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 MOTHER (hisotry of abdominal aneurysm). FATHER (History of diabetes, hypertension). Psychosocial History Where Do You Live? Home Smoking Status: Former Smoker Functional Ability ADLs Independent: dressing, eating, toileting, bathing. Ambulation: independent IADLs Independent: shopping, housework, finances, food prep, telephone, transportation , medication admin. Employment History Employment: Employed Exam & Diagnostic Data Vital Signs and I&O Vital Signs Date Time Temp Pulse Resp B/P B/P Pulse O2 O2 Flow FiO2 Mean Ox Delivery Rate 12/11 1600 97.2 82 30 132/80 98 Room Air 12/11 1600 98 Room Air 12/11 1454 160/108 12/11 1253 73 170/98 12/11 1200 95 12/11 1200 97.4 65 16 160/90 95 Room Air 12/11 0800 98.4 59 14 164/100 97 Room Air 12/11 0800 97 Room Air 12/11 0400 98 Room Air 12/11 0000 97.3 66 17 150/90 100 Room Air 12/10 2258 98 Room Air 12/10 2200 97.2 58 26 140/80 99 Room Air 12/10 2150 69 18 144/84 99 Room Air 12/10 2050 97.8 68 16 140/86 99 Room Air 12/11 2019 68 16 142/84 99 Room Air 12/10 2004 97.6 68 16 140/80 99 Room Air 12/10 1950 69 16 140/84 98 Room Air 12/10 1935 Room Air 12/10 1935 73 14 144/86 98 Room Air 12/10 1920 79 18 159/92 98 Room Air 12/10 1905 68 16 140/84 97 Room Air 12/10 1850 69 16 146/78 97 Room Air 12/10 1835 73 16 160/80 98 Room Air Intake & Output 12/11 1600 12/11 0800 12/11 0000 12/10 1600 12/10 0800 12/10 0000 Intake Total 870 120 0 Output Total 850 300 650 Balance 20 -180 -650 Intake, IV 30 0 0 Intake, Oral 840 120 0 Number 0 0 Bowel Movements Output, Urine 850 300 650 Patient 189 lb Weight Weight Bed scale Measurement Method Physical Exam: General: WD/overweight female in NAD; alert and oriented x 3 HEENT: NC/AT, PERRL, EOMI Neck: no JVD, no carotid bruit Heart: RRR w/o murmur Lungs: clear bilaterally ABdomen: soft, obese, NT, +ve bowel sounds Extremities: no edema Neuro: motor strength 3/5 in RUE and 1\5 in RLE Assessment/Plan Assessment/Plan * This patient has evidence of an acute stroke and therefore cardioembolism should be considered, however, I have a low suspicion of this. Her left atrium is a bit enlarged on echocardiography but the patient denies having palpitations that would be suggestive of paroxysmal atrial fibrillation and she is in a sinus rhythm at the present time. Small vessel disease related to hypertension is also a possibility. Nevertheless, it is prudent to monitor this patient on telemetry. An echocardiogram and carotid dopplers have already been obtained. Continue a statin. * Hypertension. This patient will be allowed some permissive hypertension over the next 24 hours. Keep her pressure between 140 and 160mmHg systolic. * This patient does have a history of true MS and vasospasm. Her cardiac enzymes are normal at this point in time. I agree with using Norvasc to help prevent coronary vasospasm as well as to control her blood pressure. I have a low suspicion of an ACS. Consult Acknowledgment - Thank you for your consult request.
[2017-12-11 18:48] LABS: ABSOLUTE BASOPHIL COUNT 0 /CUMM (0.0-0.2); ABSOLUTE EOSINOPHIL COUNT 0.1 /CUMM (0.0-0.7); ABSOLUTE GRANULOCYTE CT 1.9 /CUMM (1.4-6.5); ABSOLUTE LYMPH COUNT 2.1 /CUMM (1.2-3.4); ABSOLUTE MONOCYTE COUNT 0.3 /CUMM (0.10-0.60); BASOPHIL % 0.4 % (0.0-2.0); EOSINOPHIL % 2.5 % (0-5); GRANULOCYTE % 43.7 % (42.2-75.2); HEMATOCRIT 41.2 % (37-47); MEAN CORPUSCULAR HGB 28.5 PG (27.0-31.0); MEAN CORPUSCULAR HGB CONC 33.1 G/DL (33.0-37.0); MEAN CORPUSCULAR VOLUME 85.9 FL (81.0-99.0); PLATELET COUNT 208 /CUMM (130-400); RBC DISTRIBUTION WIDTH 13.7 % (11.5-14.5); WHITE BLOOD CELL COUNT 4.4 /CUMM (4.8-10.8)
[2017-12-11 18:54] LABS: PTT 30 SEC (25-37)
[2017-12-12] VITALS: BP 160/90
[2017-12-12 04:51] LABS: ABSOLUTE BASOPHIL COUNT 0 /CUMM (0.0-0.2); ABSOLUTE EOSINOPHIL COUNT 0.1 /CUMM (0.0-0.7); ABSOLUTE GRANULOCYTE CT 2.7 /CUMM (1.4-6.5); ABSOLUTE MONOCYTE COUNT 0.4 /CUMM (0.10-0.60); BASOPHIL % 0.3 % (0.0-2.0); EOSINOPHIL % 2.1 % (0-5); GRANULOCYTE % 52.5 % (42.2-75.2); HEMATOCRIT 40.6 % (37-47); MEAN CORPUSCULAR HGB 28.5 PG (27.0-31.0); MEAN CORPUSCULAR HGB CONC 32.9 G/DL (33.0-37.0); MEAN CORPUSCULAR VOLUME 86.5 FL (81.0-99.0); MEAN PLATELET VOLUME 8.1 FL (7.4-10.4); PLATELET COUNT 200 /CUMM (130-400); RBC DISTRIBUTION WIDTH 13.7 % (11.5-14.5); RED BLOOD CELL CT 4.69 /CUMM (4.20-5.40); WHITE BLOOD CELL COUNT 5.2 /CUMM (4.8-10.8)
[2017-12-12 08:00] VITALS: BP 106/70
--- NOTE | 2017-12-12 08:17 | PN- Resident CRCU ---
Smith JJ,Charles 12/12/17 0817: Subjective HPI/CRCU Issues: Acute ischemic stroke with Right sided weakness/numbness 24 Hour Events: I followed up and examined the patient today. She is resting comfortably in bed , not in distress, and does not offer any complaint. She is having her breakfast , using her right hand some difficulty, and is still complaining of right leg weakness although it seems to have improved compared to yesterday. No bleeding issues reported, and the patient doesn't seem to be confused, or has any other focal neurologic deficit. Repeat MRI was done eysterday showing acute infract and patient updated about the results. Objective Vital Signs & I&O Last 8 Hrs of Vitals and I&O: Vital Signs Date Time Temp Pulse Resp B/P B/P Pulse O2 O2 Flow FiO2 Mean Ox Delivery Rate 12/12 0400 97 Room Air 12/12 0000 96 Room Air 12/12 0000 97.4 81 20 160/90 96 Room Air 12/11 2000 98 Room Air 12/11 1600 97.2 82 30 132/80 98 Room Air 12/11 1600 98 Room Air 12/11 1454 160/108 12/11 1253 73 170/98 12/11 1200 95 12/11 1200 97.4 65 16 160/90 95 Room Air Intake & Output 12/12 1600 12/12 0800 12/12 0000 Intake Total 100 920 Output Total 800 1300 Balance -700 -380 Intake, IV 0 Intake, Oral 100 920 Number 0 Bowel Movements Output, Urine 800 1300 Exam General Appearance: no apparent distress, alert, awake, comfortable, obese, moving her right side of the body with some weakness, more than yesterday Other Physical Findings: Head: atraumatic, normal appearance Eyes: Bilateral: normal appearance, PERRL, EOMI Ears, Nose, Throat: normal pharynx, normal ENT inspection Neck: normal inspection, supple Respiratory: normal breath sounds, chest non-tender, no respiratory distress Cardiovascular: regular rate/rhythm Peripheral Pulses: b/l normal Gastrointestinal: normal bowel sounds, soft, non-tender Extremities: normal inspection, normal capillary refill, no edema Neurologic/Psych: better than yesterday: pt is moving her right leg 2/5, and 4/5 right arm/shoulder with some finger movement difficulties; higher mental functions are all intact. Nutrition Nutrition: P.O. diet Current Medications: Current Medications Sig/Kelly Start time Last Medication Dose Route Stop Time Status Admin Acetaminophen 650 MG Q6P PRN 12/11 1830 AC 12/11 PO 1839 Amlodipine Besylate 5 MG .STK-MED ONE 12/11 1641 DC PO 12/11 1642 Amlodipine Besylate 5 MG DAILY 12/11 1300 AC 12/11 PO 1253 Aspirin Buffered 81 MG 0900 12/12 0900 AC PO Aspirin Buffered 81 MG 2100 12/11 2100 DC PO Atorvastatin Calcium 80 MG 1700 12/11 1700 AC 12/11 PO 1743 Hydralazine HCl 20 MG .STK-MED ONE 12/11 1642 DC IV 12/11 1643 Hydralazine HCl 5 MG ONCE ONE 12/11 1500 DC 12/11 IV 12/11 1501 1454 Lisinopril 40 MG DAILY 12/11 0835 AC 12/11 PO 0936 Radiology Findings: MRI of brain done yesterday shows small acute infarct in the left thalamus, with few scattered chronic small vessel ischemic changes. No acute hemorrhage. Impression/Plan Impression/Problem List Impression: 72-year-old female with multiple risk factor for stroke including hypertension, hyperlipidemia, obesity, history of coronary artery disease, noncompliance with aspirin presented with acute onset of right-sided leg weakness. CT scan was negative for any hemorrhagic stroke. She was started on TPA after presenting with within the window for TPA. Patient received the bolus of TPA 7.56 mg and while was on the infusion around 68 mg in 68 mL of solution it had to be stopped at 30 mL parish when she reported sudden onset of pain in the abdomen radiating to back and chest pain. Patient reported that she felt relieved when TPA was stopped and did not want to continue. Whole body CT scan done then was negative for any acute hemorrhage. She was then admitted to the intensive care unit. Her stay in the ICU has been uneventful, with neurologic symptoms improving, but not completely resolved yet. Patient is currently being treated in the ICU for the following issues: RESPIRATORY No issues INFECTIOUS DISEASE No issues CARDIOLOGY #Permissive hypertension in the setting of acute ischemic stroke Yesterday we allowed systolic blood pressure at the range of 140-160, today the goal would be 140, and to resume her home oral medications if she becomes hypertensive. -manual BP only till 48 hrs of tPA. -No afib-flutter noted so far -Appreciate cardiology recs HEMATOLOGY No issues METABOLIC No acute issues Patient's lipid panel is good but still would benefit from high intensity statin , that has been ordered already ALIMENTARY PO diet, no issues NEPHROLOGY No issues NEUROLOGY #Acute ischemic stroke involving left thalamus, status post TPA use Patient overall seems to be improving, and started regaining her motor functions in the right side of the body already, which might be an ongoing process in the next few weeks. TPA was used in the emergency department, thus the patient still needs to be monitored closely for 48 hours after the TPA use, and if she continues not to bleed or have any complications thereof, she can be transferred to telemetry. -Neurology recommendations appreciated -Aspirin has been changed from RI by mouth, dose of which has been changed to 81 mg -Neurochecks q1h to q4h now -Continue PT/OT -Appreciate neuro recs CHRONIC ISSUES OTHERWISE: - MISC: Diet: PO diet, Heart Healthy diet DVT prophylaxis: SQ Heparin (after the tPA) Code status:Full code IV access: peripheral Family update: Discussed wht family again. Problem List: 1. CVA (cerebral vascular accident) Pain Ratin Pain Location: - Pain Goal: Pain 4 or less Pain Plan: prn Tomorrow's Labs & Rationales: ICU lab bundle, CBC Plan DVT/Prophylaxis: mechanical, pharmacological Josue Soares MD 12/12/17 0853: Attending MD Review Statement Attending Sign Off Attending Cosign Statement: I have: examined this patient, reviewed [facility] EMR data, personally reviewd images, discussd w/resident/PA/[employer]ER, discussed mgmt plan w/jony, discussed mgmt plan w/CM, discussed mgmt plan w/pt, agreed w/resident/PA/[employer], amended to note. Other Findings: Impression 72 year old woman * acute ischemia CVA s/p tPA (1/2 dose given, pt had a "reaction"-see chart) * Small acute infarct LEFT thalamus * hx of CAD * R thyroid nodule - f/u with PMD Plan -hemodynamic monitoring -neurology and cardiology appreciated -BP control per set parameters DVT prophylaxis at all times (ALPS for now given tPA) TTS 35 min DG to telemetry
[2017-12-12 09:00] VITALS: BP 138/80
[2017-12-12 10:00] VITALS: BP 140/84
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
--- NOTE | 2017-12-12 15:10 | PN- Cardiology ---
Subjective Subjective: The patient is comfortable. Her right sided weakness is improving. No palpitations. She notes occasional transient sharp pains in the chest. No shortness of breath. No diaphoresis. No palpitations. Objective Vital Signs and I&Os Vital Signs Date Time Temp Pulse Resp B/P B/P Pulse O2 O2 Flow FiO2 Mean Ox Delivery Rate 12/12 1000 62 140/84 12/12 0900 69 138/80 12/12 0800 97.3 69 24 106/70 92 Room Air 12/12 0400 97 Room Air 12/12 0000 96 Room Air 12/12 0000 97.4 81 20 160/90 96 Room Air 12/11 2000 98 Room Air 12/11 1600 97.2 82 30 132/80 98 Room Air 12/11 1600 98 Room Air Intake & Output 12/12 1600 12/12 0800 12/12 0000 12/11 1600 12/11 0800 12/11 0000 Intake Total 100 920 870 120 0 Output Total 800 1300 850 300 650 Balance -700 -380 20 -180 -650 Intake, IV 0 30 0 0 Intake, Oral 100 920 840 120 0 Number 0 0 0 Bowel Movements Output, Urine 800 1300 850 300 650 Patient 189 lb Weight Weight Bed scale Measurement Method Physical Exam: Gen: NAD HEENT: normal Lungs: clear to auscultation, normal resp. effort Heart: RRR, S1, S2, no murmurs Abdomen: Soft, nontender, no masses Extremities: No clubbing, cyanosis, or edema. Neuro: Alert and oriented x 3, cranial nerves intact, right upper and lower extremity weakness Current Medications: Current Medications Sig/Kelly Start time Last Medication Dose Route Stop Time Status Admin Acetaminophen 650 MG Q6P PRN 12/11 1830 AC 12/12 PO 1019 Amlodipine Besylate 5 MG .STK-MED ONE 12/11 1641 DC PO 12/11 1642 Amlodipine Besylate 5 MG DAILY 12/11 1300 AC 12/11 PO 1253 Aspirin Buffered 81 MG 0912/12 0900 AC 12/12 PO 1019 Atorvastatin Calcium 80 MG 1700 12/11 1700 AC 12/11 PO 1743 Hydralazine HCl 20 MG .STK-MED ONE 12/11 1642 DC IV 12/11 1643 Lisinopril 40 MG DAILY 12/11 0835 AC 12/11 PO 0936 Results Last 48 Hrs of Labs/Mics: Laboratory Tests 12/12/17 0345: Anion Gap 10, Estimated GFR > 60, Glucose 100 H, Calcium 9.5, Phosphorus 4.7 H , Magnesium 1.9, Total Bilirubin 0.5, AST 19, ALT 23, Albumin 3.6, CBC w Diff NO MAN DIFF REQ, RBC 4.69, MCV 86.5, MCH 28.5, MCHC 32.9 L, RDW 13.7, MPV 8.1, Gran % 52.5, Lymphocytes % 37.9, Monocytes % 7.2, Eosinophils % 2.1, Basophils % 0.3, Absolute Granulocytes 2.7, Absolute Lymphocytes 2.0, Absolute Monocytes 0.4 , Absolute Eosinophils 0.1, Absolute Basophils 0 12/11/17 1800: Anion Gap 12, Estimated GFR > 60, Glucose 127 H, Calcium 9.9, Phosphorus 4.6 H , Magnesium 1.9, Total Bilirubin 0.3, AST 20, ALT 20, Albumin 3.8, PT 14.0 H, INR 1.28 H, APTT 30, CBC w Diff NO MAN DIFF REQ, RBC 4.80, MCV 85.9, MCH 28.5, MCHC 33.1, RDW 13.7, MPV 8.0, Gran % 43.7, Lymphocytes % 47.1, Monocytes % 6.3, Eosinophils % 2.5, Basophils % 0.4, Absolute Granulocytes 1.9, Absolute Lymphocytes 2.1, Absolute Monocytes 0.3, Absolute Eosinophils 0.1, Absolute Basophils 0 12/11/17 0620: Anion Gap 8, Estimated GFR > 60, Glucose 107 H, Calcium 9.2, Phosphorus 4.8 H, Magnesium 1.9, Total Bilirubin 0.4, AST 19, ALT 21, Troponin I < 0.01, Albumin 3.4 L, Triglycerides 119, Cholesterol 164, LDL Cholesterol, Calc 66, HDL Cholesterol 75 H, Cholesterol/HDL Ratio 2, PT 14.2 H, INR 1.30 H, APTT 30, CBC w Diff NO MAN DIFF REQ, RBC 4.51, MCV 85.6, MCH 28.7, MCHC 33.5, RDW 13.4, MPV 7.2 L, Gran % 42.6, Lymphocytes % 44.9, Monocytes % 9.2, Eosinophils % 2.8, Basophils % 0.5, Absolute Granulocytes 1.7, Absolute Lymphocytes 1.8, Absolute Monocytes 0.4, Absolute Eosinophils 0.1, Absolute Basophils 0 12/10/17 1752: Anion Gap 10, Estimated GFR > 60, BUN/Creatinine Ratio 21.4, Glucose 105 H, Calcium 9.4, Magnesium 2.0, Total Bilirubin 0.4, AST 22, ALT 23, Alkaline Phosphatase 135 H, Troponin I < 0.01, Total Protein 7.0, Albumin 3.8, Globulin 3.2, Albumin/Globulin Ratio 1.2, PT 14.2 H, INR 1.30 H, APTT 30, Fibrinogen Activity 434 H, CBC w Diff NO MAN DIFF REQ, RBC 4.83, MCV 85.1, MCH 28.5, MCHC 33.4, RDW 13.6, MPV 7.4, Gran % 39.2 L, Lymphocytes % 49.5, Monocytes % 8.5, Eosinophils % 2.4, Basophils % 0.4, Absolute Granulocytes 1.8, Absolute Lymphocytes 2.3, Absolute Monocytes 0.4, Absolute Eosinophils 0.1, Absolute Basophils 0 Microbiology 12/10 2214 UPPER RESP: Surveillance Culture - COMP 12/10 1944 URINE ROUT: Urine Culture - COMP Recent Imaging Studies: Telemetry monitoring reveals a single run of nonsustained ventricular tachycardia Assessment/Plan Assessment/Plan Assessment: 1. Acute CVA 2. Hypertension 3. Nonsustained ventricular tachycardia, 7 beat run noted on telemetry 4. 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 Yes
[2017-12-12 16:00] VITALS: BP 138/72
[2017-12-13] VITALS: BP 138/90
[2017-12-13 04:00] VITALS: BP 128/78
[2017-12-13 04:35] LABS: ABSOLUTE BASOPHIL COUNT 0 /CUMM (0.0-0.2); ABSOLUTE EOSINOPHIL COUNT 0.1 /CUMM (0.0-0.7); ABSOLUTE GRANULOCYTE CT 2.6 /CUMM (1.4-6.5); ABSOLUTE MONOCYTE COUNT 0.4 /CUMM (0.10-0.60); BASOPHIL % 0.6 % (0.0-2.0); EOSINOPHIL % 2.2 % (0-5); GRANULOCYTE % 50.3 % (42.2-75.2); HEMATOCRIT 38.8 % (37-47); MEAN CORPUSCULAR HGB 28.5 PG (27.0-31.0); MEAN CORPUSCULAR HGB CONC 33.2 G/DL (33.0-37.0); MEAN CORPUSCULAR VOLUME 86.1 FL (81.0-99.0); MEAN PLATELET VOLUME 7.9 FL (7.4-10.4); PLATELET COUNT 206 /CUMM (130-400); RBC DISTRIBUTION WIDTH 13.7 % (11.5-14.5); RED BLOOD CELL CT 4.51 /CUMM (4.20-5.40); WHITE BLOOD CELL COUNT 5.2 /CUMM (4.8-10.8)
[2017-12-13 08:00] VITALS: BP 138/68
--- NOTE | 2017-12-13 08:16 | PN- Resident CRCU ---
Owen JJ,Carrie 12/13/17 0816: Subjective HPI/CRCU Issues: Patient is seen and examined at the bedside. She was complaining of pain in the right upper arm in the right lower leg. According to her she has improved in terms of activity of right upper and right lower limb. Denies for any new neurological deficit. 24 Hour Events: Vital signs-temperature 98.2, pulse 68, respiratory 20, blood pressure 138/68, SPO2 93% on room air. Objective Vital Signs & I&O Last 8 Hrs of Vitals and I&O: Vital signs-temperature 98.2, pulse 68, respiratory 20, blood pressure 138/68, SPO2 93% on room air. Exam General Appearance: alert, awake, comfortable Respiratory: normal breath sounds, chest non-tender Cardiovascular: regular rate/rhythm Gastrointestinal: soft, non-tender Extremities: normal inspection, normal capillary refill, right upper and lower limb 4/5 Cranial Nerves: normal hearing, normal speech Current Medications: Current Medications Sig/Kelly Start time Last Medication Dose Route Stop Time Status Admin Acetaminophen 650 MG Q6P PRN 12/11 1830 AC 12/12 PO 1019 Amlodipine Besylate 5 MG DAILY 12/11 1300 AC 12/11 PO 1253 Aspirin Buffered 81 MG 0900 12/12 0900 AC 12/13 PO 0930 Atorvastatin Calcium 80 MG 1700 12/11 1700 AC 12/12 PO 1657 Lisinopril 40 MG DAILY 12/11 0835 AC 12/11 PO 0936 Impression/Plan Impression/Problem List Impression: 72-year-old female with multiple risk factor for stroke including hypertension, hyperlipidemia, obesity, history of coronary artery disease, noncompliance with aspirin presented with acute onset of right-sided leg weakness. CT scan was negative for any hemorrhagic stroke. She was started on TPA after presenting with within the window for TPA. Patient received the bolus of TPA 7.56 mg and while was on the infusion around 68 mg in 68 mL of solution it had to be stopped at 30 mL [place] when she reported sudden onset of pain in the abdomen radiating to back and chest pain. Patient reported that she felt relieved when TPA was stopped and did not want to continue. Whole body CT scan done then was negative for any acute hemorrhage. She was then admitted to the intensive care unit. Her stay in the ICU has been uneventful, with neurologic symptoms improving, but not completely resolved yet. Left thalamic infarct s/p incomeplete tPA dosing - * Telemetry hold * Continue tablet aspirin, atorvastatin * Neuro check - Qshift * PT/OT Chronic medical condition-hypertension, hyperlipidemia * We will continue patient on tablet amlodipine, lisinopril as before Pain management - * Acetaminophen as needed if needed than will add Gabapentin CODE STATUS -full code Diet -heart healthy diet DVT prophylaxis -ALPS/heparin Problem List: 1. Coronary artery disease 2. Hyperlipidemia 3. Hypertension 4. CVA (cerebral vascular accident) Pain Ratin Pain Location: right upper and lower leg Tomorrow's Labs & Rationales: n/a Plan DVT/Prophylaxis: mechanical, pharmacological Josue Soares MD 12/13/17 1111: Attending MD Review Statement Attending Sign Off Attending Cosign Statement: I have: examined this patient, reviewed [facility] EMR data, personally reviewd images, discussd w/resident/PA/RADIOLOGY PHYSICIAN, discussed mgmt plan w/jony, discussed mgmt plan w/CM, discussed mgmt plan w/pt, agreed w/resident/PA/RADIOLOGY PHYSICIAN, amended to note. Other Findings: Impression 72 year old woman * acute ischemia CVA s/p tPA (1/2 dose given, pt had a "reaction"-see chart) * Small acute infarct LEFT thalamus * hx of CAD * R thyroid nodule - f/u with PMD Plan -hemodynamic monitoring -neurology and cardiology appreciated -BP control per set parameters DVT prophylaxis at all times (ALPS for now given tPA) Telemetry hold - awaiting bed
--- NOTE | 2017-12-13 13:44 | PN- Cardiology ---
Subjective Subjective: The patient is comfortable. Her right sided weakness is improving. No palpitations. She notes occasional transient sharp pains in the chest. No shortness of breath. No diaphoresis. No palpitations. Objective Vital Signs and I&Os Vital Signs Date Time Temp Pulse Resp B/P B/P Pulse O2 O2 Flow FiO2 Mean Ox Delivery Rate 12/13 0938 69 138/68 12/13 0938 69 138/68 12/13 0800 97.8 69 20 138/68 94 Room Air 12/13 0400 97.0 85 20 128/78 93 Room Air 12/13 0000 96 Room Air 12/13 0000 97.2 80 20 138/90 96 Room Air 12/12 1600 98.2 68 20 138/72 96 Room Air Intake & Output 12/13 1600 12/13 0800 12/13 0000 12/12 1600 12/12 0800 12/12 0000 Intake Total 240 340 750 100 920 Output Total 400 350 350 791 072 8021 Balance -160 -350 -10 300 -700 -380 Intake, IV 0 0 0 Intake, Oral 240 340 750 100 920 Number 1 0 0 1 0 Bowel Movements Output, Urine 400 350 350 340 985 9218 Patient 189 lb Weight Weight Bed scale Measurement Method Physical Exam: Gen: NAD HEENT: normal Lungs: clear to auscultation, normal resp. effort Heart: RRR, S1, S2, no murmurs Abdomen: Soft, nontender, no masses Extremities: No clubbing, cyanosis, or edema. Neuro: Alert and oriented x 3, cranial nerves intact, right upper and lower extremity weakness Current Medications: Current Medications Sig/Kelly Start time Last Medication Dose Route Stop Time Status Admin Acetaminophen 650 MG Q6P PRN 12/11 1830 AC 12/12 PO 1019 Amlodipine Besylate 5 MG DAILY 12/11 1300 AC 12/11 PO 1253 Aspirin Buffered 81 MG 0912/12 0900 AC 12/13 PO 0930 Atorvastatin Calcium 80 MG 1700 12/11 1700 AC 12/12 PO 1657 Lisinopril 40 MG DAILY 12/11 0835 AC 12/11 PO 0936 Results Last 48 Hrs of Labs/Mics: Laboratory Tests 12/13/17 0340: Anion Gap 9, Estimated GFR > 60, Glucose 112 H, Calcium 9.5, Phosphorus 4.7 H, Magnesium 1.9, Total Bilirubin 0.4, AST 21, ALT 21, Albumin 3.4 L, CBC w Diff NO MAN DIFF REQ, RBC 4.51, MCV 86.1, MCH 28.5, MCHC 33.2, RDW 13.7, MPV 7.9, Gran % 50.3, Lymphocytes % 39.3, Monocytes % 7.6, Eosinophils % 2.2, Basophils % 0.6, Absolute Granulocytes 2.6, Absolute Lymphocytes 2.0, Absolute Monocytes 0.4 , Absolute Eosinophils 0.1, Absolute Basophils 0 12/12/17 0345: Anion Gap 10, Estimated GFR > 60, Glucose 100 H, Calcium 9.5, Phosphorus 4.7 H , Magnesium 1.9, Total Bilirubin 0.5, AST 19, ALT 23, Albumin 3.6, CBC w Diff NO MAN DIFF REQ, RBC 4.69, MCV 86.5, MCH 28.5, MCHC 32.9 L, RDW 13.7, MPV 8.1, Gran % 52.5, Lymphocytes % 37.9, Monocytes % 7.2, Eosinophils % 2.1, Basophils % 0.3, Absolute Granulocytes 2.7, Absolute Lymphocytes 2.0, Absolute Monocytes 0.4 , Absolute Eosinophils 0.1, Absolute Basophils 0 12/11/17 1800: Anion Gap 12, Estimated GFR > 60, Glucose 127 H, Calcium 9.9, Phosphorus 4.6 H , Magnesium 1.9, Total Bilirubin 0.3, AST 20, ALT 20, Albumin 3.8, PT 14.0 H, INR 1.28 H, APTT 30, CBC w Diff NO MAN DIFF REQ, RBC 4.80, MCV 85.9, MCH 28.5, MCHC 33.1, RDW 13.7, MPV 8.0, Gran % 43.7, Lymphocytes % 47.1, Monocytes % 6.3, Eosinophils % 2.5, Basophils % 0.4, Absolute Granulocytes 1.9, Absolute Lymphocytes 2.1, Absolute Monocytes 0.3, Absolute Eosinophils 0.1, Absolute Basophils 0 Assessment/Plan Assessment/Plan Assessment: 1. Acute CVA 2. Hypertension 3. Nonsustained ventricular tachycardia, 7 beat run noted on telemetry 4. 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 Yes
--- NOTE | 2017-12-13 14:55 | PN- Neurology ---
Subjective Subjective: right arm heavy Review of Systems: right arm weakness Objective Vital Signs and I&Os Vital Signs Date Time Temp Pulse Resp B/P B/P Pulse O2 O2 Flow FiO2 Mean Ox Delivery Rate 12/13 0938 69 138/68 12/13 0938 69 138/68 12/13 0800 97.8 69 20 138/68 94 Room Air 12/13 0400 97.0 85 20 128/78 93 Room Air 12/13 0000 96 Room Air 12/13 0000 97.2 80 20 138/90 96 Room Air 12/12 1600 98.2 68 20 138/72 96 Room Air Intake & Output 12/13 1600 12/13 0800 12/13 0000 12/12 1600 12/12 0800 12/12 0000 Intake Total 240 340 750 100 920 Output Total 400 350 350 416 541 7713 Balance -160 -350 -10 300 -700 -380 Intake, IV 0 0 0 Intake, Oral 240 340 750 100 920 Number 1 0 0 1 0 Bowel Movements Output, Urine 400 350 350 424 394 2766 Patient 189 lb Weight Weight Bed scale Measurement Method weakness rt arm and leg slow improvement mild sensory loss to light touch Current Medications: Current Medications Sig/Kelly Start time Last Medication Dose Route Stop Time Status Admin Acetaminophen 650 MG Q6P PRN 12/11 1830 AC 12/12 PO 1019 Amlodipine Besylate 5 MG DAILY 12/11 1300 AC 12/11 PO 1253 Aspirin Buffered 81 MG 0912/12 0900 AC 12/13 PO 0930 Atorvastatin Calcium 80 MG 1700 12/11 1700 AC 12/12 PO 1657 Lisinopril 40 MG DAILY 12/11 0835 AC 12/11 PO 0936 Results Last 24 Hours of Lab Results: Laboratory Tests 12/13 0340 Chemistry Sodium (137 - 145 mmol/L) 140 Potassium (3.5 - 5.1 mmol/L) 4.1 Chloride (98 - 107 mmol/L) 103 Carbon Dioxide (22 - 30 mmol/L) 28 Anion Gap (5 - 16) 9 BUN (7 - 17 mg/dL) 18 H Creatinine (0.5 - 1.0 mg/dL) 0.9 Estimated GFR (>60 ml/min) > 60 Glucose (65 - 99 mg/dL) 112 H Calcium (8.4 - 10.2 mg/dL) 9.5 Phosphorus (2.5 - 4.5 mg/dL) 4.7 H Magnesium (1.6 - 2.3 mg/dL) 1.9 Total Bilirubin (0.2 - 1.3 mg/dL) 0.4 AST (14 - 36 U/L) 21 ALT (9 - 52 U/L) 21 Albumin (3.5 - 5.0 g/dL) 3.4 L Hematology CBC w Diff NO MAN DIFF REQ WBC (4.8 - 10.8 /CUMM) 5.2 RBC (4.20 - 5.40 /CUMM) 4.51 Hgb (12.0 - 16.0 G/DL) 12.9 Hct (37 - 47 %) 38.8 MCV (81.0 - 99.0 FL) 86.1 MCH (27.0 - 31.0 PG) 28.5 MCHC (33.0 - 37.0 G/DL) 33.2 RDW (11.5 - 14.5 %) 13.7 Plt Count (130 - 400 /CUMM) 206 MPV (7.4 - 10.4 FL) 7.9 Gran % (42.2 - 75.2 %) 50.3 Lymphocytes % (20.5 - 51.1 %) 39.3 Monocytes % (1.7 - 9.3 %) 7.6 Eosinophils % (0 - 5 %) 2.2 Basophils % (0.0 - 2.0 %) 0.6 Absolute Granulocytes (1.4 - 6.5 /CUMM) 2.6 Absolute Lymphocytes (1.2 - 3.4 /CUMM) 2.0 Absolute Monocytes (0.10 - 0.60 /CUMM) 0.4 Absolute Eosinophils (0.0 - 0.7 /CUMM) 0.1 Absolute Basophils (0.0 - 0.2 /CUMM) 0 Recent Imaging Studies: MRI IMPRESSION: Small acute infarct involving the left thalamus. This acute finding superimposed upon a few scattered chronic small vessel ischemic changes within the periventricular white matter. No evidence of acute hemorrhage. Assessment/Plan Assessment: lacunar stroke slow imptovement Plan: Rehab facility
[2017-12-13 16:00] VITALS: BP 126/90
[2017-12-13 22:54] VITALS: BP 134/82
[2017-12-14 06:47] VITALS: BP 140/70
--- NOTE | 2017-12-14 07:26 | PN- Housestaff ---
Yael Patel 12/14/17 0724: Subjective Follow-up For: Left thalamic infarct Complaints: no complaints Tele-Events Since Last Visit: Normal sinus rhythm, heart rate in the range of 66-80, multiple PACs and PVCs noted. Subjective: Ms Dan was comfortable this morning. Did not have any new concerns. Did not have any chest pain, palpitations, acute dyspnea. Stated that she continued to have weakness in the left upper and lower extremity, but has been showing improvement. Reported that she feels up to 60% improvement compared to when she presented. Did not have any worsening symptoms. Also reported improvement in her paresthesias in her right upper and lower extremity is. Did not have any loss of bladder bowel function. She complained of dysuria and frequency. No changes in speech, vision, consciousness, swallowing. Tolerating diet well. When I saw this morning, she was working with physical therapy. Review of Systems Constitutional: Reports: see HPI. Objective Last 24 Hrs of Vital Signs/I&O Vital Signs Date Time Temp Pulse Resp B/P B/P Pulse O2 O2 Flow FiO2 Mean Ox Delivery Rate 12/14 0647 97.8 76 20 140/70 96 Room Air 12/14 0000 Room Air 12/13 2254 98.0 95 16 134/82 96 12/13 1600 98.9 81 20 126/90 94 Room Air 12/13 0938 69 138/68 12/13 0938 69 138/68 12/13 0800 97.8 69 20 138/68 94 Room Air Intake & Output 12/14 0800 12/14 0000 12/13 1600 Intake Total 300 720 Output Total 300 450 550 Balance -300 -150 170 Intake, IV 0 Intake, Oral 300 720 Number 1 Bowel Movements Output, Urine 300 450 550 Patient 188 lb Weight Physical Exam General Appearance: No Acute Distress Other Physical Findings: General Exam: AAOx3, No acute distress, Skin: No rashes, no breakdown;HEENT: PERRLA, EOMI;Neck: Supple, No JVD; No cervical lymphadenopathy;CVS: Reg Rate, Normal S1,S2, No MGR;Resp: Normal air entry, no ronchi/rales;Abdomen: Soft, No tenderness, Normal Bowel Sounds;Neuro: Normal Speech, Strength 4/5 in RUE, RLE, strenght 5/5 LUE, LLE; sensation decreaed on the RUE, and RLE, sensation normal in the LUE, LLE, CN III-XII NL, Reflexes 2+; cerebellar test normal, Gait wasnt tested. Extremities: No cyanosis, no pedal edema. Current Medications: Current Medications Sig/Kelly Start time Last Medication Dose Route Stop Time Status Admin Acetaminophen 650 MG .STK-MED ONE 12/13 2104 DC PO 12/13 2105 Acetaminophen 650 MG Q6P PRN 12/11 1830 AC 12/13 PO 210 Amlodipine Besylate 5 MG DAILY 12/11 1300 AC 12/11 PO 1253 Aspirin Buffered 81 MG 0912/12 0900 AC 12/13 PO 0930 Atorvastatin Calcium 80 MG 1700 12/11 1700 AC 12/13 PO 1857 Lisinopril 40 MG DAILY 12/11 0835 AC 12/11 PO 0936 Last 24 Hrs of Lab/Jonathan Results Last 24 Hrs of Labs/Mics: Laboratory Tests 12/13/17 1613: Urinalysis LIGHT H, Urine Color YEL, Urine Clarity HAZY H, Urine pH 6.0, Ur Specific [place] 1.010, Urine Protein NEG, Urine Ketones NEG, Urine Nitrite NEG, Urine Bilirubin NEG, Urine Urobilinogen 0.2, Ur Leukocyte Esterase LARGE H, Ur Microscopic SEDIMENT EXAMINED, Urine RBC 10-15 H, Urine WBC 25-50 H, Ur Epithelial Cells FEW, Urine Bacteria FEW H, Urine Mucus FEW, Urine Hemoglobin LARGE H, Urine Glucose NEG Microbiology 12/13 1705 URINE ROUT: Urine Culture - CAN Cancelled: DUPLICATE REQUEST - SEE [id number] 12/13 1612 URINE ROUT: Urine Culture - RECD Assessment/Plan Assessment: Ms Dan is a 72-year-old woman w/ PMHx of including hypertension, hyperlipidemia, obesity, history of coronary artery disease (myocardial infarction, recurrent angina), renal cell cancer status post nephrectomy, past smoker noncompliance with aspirin presented with acute onset of right-sided leg weakness a few hours prior to presentation to the ER on 12/10/2017. CT scan head without contrast did not reveal any evidence for hemorrhage, and was started on tPA. She received approximately half the dose, and was discontinued abruptly since she reported sudden abdominal pain, radiating to back and chest pain. She was then admitted to the intensive care unit, for frequent neuro checks. She was started on aspirin and statin, and neurology was consulted. Blood pressure remained less than 150 systolic, and was continued on her antihypertensive medications. Follow-up MRI revealed small acute infarct involving the left thalamus. This acute finding superimposed upon a few scattered chronic small vessel ischemic changes within the periventricular white matter. No evidence of acute hemorrhage. Etiology in her case is likely from uncontrolled hypertension, and also has several risk factors for stroke. Given her thalamic involvement, and lacunar in nature would require a longer physical rehabilitation. Problem list: 1. Acute thalamus infarct-left 2. Urinary tract infection 3. Hypertension 4. Incidental thyroid nodule Plan: - She needs to be monitored on telemetry, for any arrythmias - Neurochecks q shift - Formal swallow eval completed, and no dysphagia - Lipid panel checked - She was continued on aspirin and high intensity statin. - TSHR. - Start the patient on ceftriaxone given her symptoms. - Short-term acute rehabilitation as per physical therapy. - Continue antihypertensives, especially lisinopril and amlodipine. CODE STATUS -full code Diet -heart healthy diet DVT prophylaxis -ALPS/ sc heparin Problem List: 1. Coronary artery disease 2. Hyperlipidemia 3. Hypertension 4. CVA (cerebral vascular accident) Pain Ratin Pain Location: back Pain Goal: Pain 4 or less Pain Plan: tylenol Tomorrow's Labs & Rationales: cbc fredip Katlyn Arreaga 12/14/17 1154: Attending MD Review Statement Attending Statement Attending MD Statement: examined this patient, discuss w/resident/PA/SENIOR PRODUCTION SUPERVISOR, agreed w/resident/PA/SENIOR PRODUCTION SUPERVISOR, discussed with family, reviewed EMR data (avail), discussed with nursing, discussed with case mgmt, reviewed images, amended to note Attending Assessment/Plan: Patient seen/examined bedside. She denies any new complaints. Her right sided weakness is slowly improving. She is working with PT here and [facility]. Continue antipaltelet therapy as per neurology.
--- NOTE | 2017-12-14 11:26 | Transfer of Care Summary ---
Hospital Course Course Hospital Course: 72-year-old female with past medical history of hypertension, coronary artery disease with recurrent angina, hyperlipidemia, renal cell carcinoma status post partial nephrectomy, was brought in by ambulance after noticing a sudden onset of right-sided weakness lower extremity> upper. With stroke alert, and immediate CAT scan of the head did not show any bleeding, and TPN was started after explaining the benefits and risks of the medication. Her TPA had to be stopped medically after she complained of epigastric pain, and uneasiness, and a rasmussen CAT scan did not reveal any complication, like bleeding. After that, she did not want to continue the TPA. She was initially monitored in the ICU, and within 24 hours, she started regaining her right lower extremity movement partially, and a repeat MRI of the head did show acute left thalamic ischemic stroke. She did not have any bleeding complication during the time of stay in the ICU. Her BP was measured manually until 48 hrs of tPA administration. Neurology and Cardiology has been on board since the start. Diet: Heart healthy diet with regular consistency DVT prophylaxis with subcutaneous heparin started after TPA timeline was over CODE STATUS: Full code Assessment/Plan: As noted above.
[2017-12-14 12:03] VITALS: BP 148/80
--- NOTE | 2017-12-14 13:31 | Discharge Summary ---
Visit Information Visit Dates Admission Date: 12/10/17 Discharge Date: 12/15/17 Hospital Course Course Attending Physician: Gibson JJ,Katlyn Primary Care Physician: Dr Marcial Hospital Course: Ms Dan is a 72-year-old woman w/ PMHx of including hypertension, hyperlipidemia, obesity, history of coronary artery disease (myocardial infarction, recurrent angina), renal cell cancer status post nephrectomy, past smoker noncompliance with aspirin presented with acute onset of right-sided leg weakness a few hours prior to presentation to the ER on 12/10/2017. CT scan head did not reveal any evidence for hemorrhage, and was started on tPA. She received approximately half the dose, which was discontinued abruptly since she reported sudden abdominal pain, radiating to back associated w/ chest pain. She was then admitted to the intensive care unit, for further managment. She was started on aspirin and statin, and neurology was consulted. Blood pressure remained stable ( SBP < 150 mmHg), and was continued on her antihypertensive medications. She made good progress, with upto 50-60% return of motor and sensory function compared to her baseline. She continued to have difficulty ambulating, given her weakness in her lower extremity. She was later transfered to telemetry floor to monitor for any arrythmias, and didnt have any abnormal tele events reported. Anti-hypertensive medications adjusted. Follow-up MRI revealed small acute infarct involving the left thalamus. This acute finding superimposed upon a few scattered chronic small vessel ischemic changes within the periventricular white matter. No evidence of acute hemorrhage. Etiology in her case was thought to be from uncontrolled hypertension, and given her mutliple risk factors for stroke, she was counseled extensively regarding adherence to statin+ASA, and lifestyle management. Given her thalamic involvement, and lacunar in nature which would likely require a longer physical rehabilitation. She also complained of dysurea, and increased frequency of urination while she was admitted to the hospital. Urine culture revealed pansensitive Ecoli, and was started on a cephalosporin. There was an incidental finding of thyroid nodule, w / normal TSH that could followed up post-discharge. Problem list: 1. Acute thalamus infarct-left 2. Urinary tract infection 3. Hypertension 4. Incidental thyroid nodule Pertinent lab findings: WBC 3.9, hemoglobin 12.9, hematocrit 38.6, platelet count 191. Na 140, K 4.7, BUN 20, Cr 0.7. UA WBC 25-50, few bacteria, ULE +, nitrites negative. TSH 1.01 TG 119, Chol 164, LDL 66, HDL 75. HbA1c 5.6 Allergies: Coded Allergies: Sulfa (Sulfonamide Antibiotics) (Severe, SWELLING 11/26/17) Pertinent Lab Results: CAT - CT HEAD ANGIOGRAM; CT NECK ANGIOGRAM 12/10/17 1. There are no acute bleeds or territorial infarcts. No masses are demonstrated. Serpiginous enhancement in the left basal ganglia may be consistent with a developmental venous anomaly. 2. There are no focal stenoses, occlusions or aneurysms in the cervical and intracranial circulations. There is minimal atheromatous calcification. 3. The patient is is status post left hemithyroidectomy. The right lobe of the thyroid gland is enlarged with heterogenous density. A small isthmic thyroid nodule is also noted. Correlate with surgical history. CAT - CT HEAD WO IV CONTRAST 12/10/17-1714 No acute intracranial pathology. CAT - CT ABD & PELVIS W/O IV CONTRAS; CT CHEST WO IV CONTRAST 12/10/171850 1. No acute abnormality CT of the chest, abdomen or pelvis. 2. Nodular heterogeneity of the right lobe of thyroid. This can be further assessed with thyroid ultrasound. The left lobe of thyroid has been surgically removed. CARD - ECHOCARDIOGRAM 12/11/17-0800 Normal left ventricular size, wall thickness and systolic function with no obvious regional wall motion abnormalities. Abnormal relaxation filling pattern of the left ventricle for age (stage 1 diastolic dysfunction). The ejection fraction is visually estimated at 65 %. The left atrium is enlarged. There is trace mitral regurgitation. There is mild aortic regurgitation. There is mild tricuspid regurgitation. Pulmonary artery systolic pressure is elevated, estimated at 40-45 mmHg. There is trace pulmonic regurgitation. Normal pericardium without effusion. Normal aortic root dimension. The interatrial septum is intact. US - [id number] DOPPLER 12/11/171545 Plaque is present in the internal carotid arteries but velocity measurements are normal and there is no evidence to suggest a hemodynamically significant stenosis of greater than 50% diameter reduction. Right thyroid nodule. Recommend nonurgent dedicated thyroid ultrasound for further evaluation. MRI - MRI-HEAD W/O WALLY 12/11/17-1800 Small acute infarct involving the left thalamus. This acute finding superimposed upon a few scattered chronic small vessel ischemic changes within the periventricular white matter. No evidence of acute hemorrhage. > URINE CULTURE Final 12/15/17-0840 Greater than 100,000 colonies per ml of: ESCHERICHIA COLI 1. ESCHERICHIA COLI RX AB ------ -- AMPICILLIN S CEFAZOLIN S AMOXICILLIN/CLAVULINIC ACID S AMPICILLIN/SULBACTAM S CIPROFLOXACIN S GENTAMICIN S NITROFURANTOIN S TRIMETHOPRIM/SULFAMETHOXAZOLE S Disposition Summary Disposition Principal Diagnosis: Left thalamic stroke Additional Diagnosis: Hypertension Discharge Disposition: SNF Discharge Instructions General Discharge Information Code Status: Full Code Patient's Diet: heart healthy diet Patient's Activity: as tolerated Follow-Up Instructions/Appts: 1. Please follow up with your PCP, neurologist, cardiolgosit within one week of discharge. 2. Please discuss with your flight communications operator regarding your medications, especially beta-blockers. Medications at Discharge Discharge Medications: Stop taking the following medications: Atorvastatin Calcium (Atorvastatin Calcium) 10 MG TABLET ORAL DAILY Continue taking these medications: Lisinopril (Lisinopril) 40 MG TABLET 1 Tablet ORAL DAILY Comments: Last Taken: 12/15/17 Time: 1000 Multivit-Min/Iron/Folic/Lutein (Centrum Silver Women Tablet) 8 MG IRON-400 MCG- 300 MCG TABLET 1 Tablet ORAL DAILY Start taking the following new medications: Cephalexin (Keflex) 500 MG CAPSULE 1 Capsule ORAL TWICE DAILY Qty = 4 No Refills Atorvastatin Calcium (Atorvastatin Calcium) 80 MG TABLET 80 Milligram ORAL 5 PM Qty = 30 Refills = 2 Comments: Last Taken: 12/14/17 Time: 1600 Amlodipine Besylate (Amlodipine Besylate) 5 MG TABLET 5 Milligram ORAL DAILY Qty = 30 Refills = 2 Comments: Last Taken: 12/15/17 Time: 1000 AM Aspirin (Ecotrin*) 81 MG TABLET. 81 Milligram ORAL 0900 Qty = 30 Refills = 2 Comments: Last Taken: 12/15/17 Time: 1000 AM Copies To: Aggie JJ,Aggie Montenegro MD Review Statement Documenting Attending: Katlyn Arreaga MD
[2017-12-14 14:56] VITALS: BP 142/76
[2017-12-14] MEDS ORDERED: ASPIRIN EC81 M1 PO (18:51)
[2017-12-14] MEDS ORDERED: ATORVASTATIN CA80 M1 PO (18:51)
[2017-12-14] MEDS ORDERED: AMLODIPINE BESYL5 M1 PO (18:51)
--- NOTE | 2017-12-14 18:55 | Patient Discharge Instructions ---
Discharge Instructions General Discharge Information You were seen/treated for: Stroke/Cerebrovascular accident Watch for these problems: - loss of consciousness, worsening weakness in upper and lower extremities - Chest pain, shortenss of breath, palpitations - Seizures - Loss of vision, double vision Special Instructions: 1. Please see your PCP within one week of discharge. 2. Please discuss with your primary physician that you were admitted at [facility] for the managment of stroke. 3. Follow up with your neurologist within one week. Please take your medicaitons as prescribed. 4. Please let your mill and coal transport operator know that you were in a hospital, and some medicaitons(blood pressure medications) were changed recently. Acute Coronary Syndrome Inclusion Criteria At DC or during hospital stay patient has or had the following: ACS DIAGNOSIS No Discharge Core Measures Meds if any: Prescribed or Continued at Discharge Meds if any: NOT Prescribed or Continued at Discharge Congestive Heart Failure Inclusion Criteria At DC or during hospital stay patient has or had the following: CHF DIAGNOSIS No Discharge Core Measures Meds if any: Prescribed or Continued at Discharge Meds if any: NOT Prescribed or Continued at Discharge Cerebrovascular accident Inclusion Criteria At DC or during hospital stay patient has or had the following: CVA/TIA Diagnosis Yes Discharge Core Measures Meds if any: Prescribed or Continued at Discharge Antithrombotic Yes Statin (required if LDL =>70) Yes Meds if any: NOT Prescribed or Continued at Discharge Venous thromboembolism Inclusion Criteria VTE Diagnosis No VTE Type NONE VTE Confirmed by (Test) NONE Discharge Core Measures - Per Current guidelines, there needs to be overlap - treatment for the first 5 days of Warfarin therapy. - If discharged on Warfarin prior to 5 days of - overlap therapy, the patient will need to be - assessed for post discharge needs including - *Post discharge parental anticoagulation - *Warfarin and/or parental anticoagulation education - *Follow up date to check INR post discharge At least 5 days overlap therapy as Inpatient No Meds if any: Prescribed or Continued at Discharge Note: Overlap Therapy is Warfarin and Anticoagulant Meds if any: NOT Prescribed or Continued at Discharge
[2017-12-14 22:21] VITALS: BP 138/76
[2017-12-15 06:39] VITALS: BP 134/80
--- NOTE | 2017-12-15 07:17 | PN- Housestaff ---
Yael Patel 12/15/17 0715: Subjective Follow-up For: Left thalamic infarct Complaints: no complaints Tele-Events Since Last Visit: Normal sinus rhythm, heart rate 69-85 bpm. Subjective: She was comfortable this morning. Did not have any new concerns. Stated that her strength improved in her right upper and lower extremity compared to yesterday. She has been actively working with physical therapy. Vitals remained stable overnight. Blood pressure remained in the range of systolic-130 -140. He's been tolerating medications and diet well. Did not have any episodes of loss of consciousness, vision changes, worsening paresthesias in upper and lower extremities, loss of bladder bowel function, nausea, vomiting or dysphagia. We discussed about possible discharge today, to a short-term rehabilitation which is an acute rehabilitation, for which Ms. Dan was agreeable. Review of Systems Constitutional: Reports: see HPI. Objective Last 24 Hrs of Vital Signs/I&O Vital Signs Date Time Temp Pulse Resp B/P B/P Pulse O2 O2 Flow FiO2 Mean Ox Delivery Rate 12/15 0639 98.4 75 18 134/80 97 Room Air 12/14 2221 98.0 81 18 138/76 94 Room Air 12/14 1456 98.2 79 18 142/76 97 Room Air 12/14 1322 Room Air 12/14 1235 Room Air 12/14 1203 98.5 74 22 148/80 12/14 0904 97.8 76 20 140/70 12/14 0904 97.8 76 20 140/70 Intake & Output 12/15 0800 12/15 0000 12/14 1600 Intake Total 400 400 720 Output Total 375 1100 Balance 25 400 -380 Intake, Oral 400 400 720 Number 1 Bowel Movements Output, Urine 375 1100 Patient 194 lb 188 lb Weight Weight Bed scale Bed scale Measurement Method Physical Exam General Appearance: No Acute Distress Other Physical Findings: General Exam: AAOx3, No acute distress, Skin: No rashes, no breakdown;HEENT: PERRLA, EOMI;Neck: Supple, No JVD; No cervical lymphadenopathy;CVS: Reg Rate, Normal S1,S2, No MGR;Resp: Normal air entry, no ronchi/rales;Abdomen: Soft, No tenderness, Normal Bowel Sounds;Neuro: Normal Speech, Strength 4/5 in RUE, RLE, strenght 5/5 LUE, LLE; sensation decreaed on the RUE, and RLE, sensation normal in the LUE, LLE, CN III-XII NL, Reflexes 2+; cerebellar test normal. Extremities: No cyanosis, no pedal edema. Current Medications: Current Medications Sig/Kelly Start time Last Medication Dose Route Stop Time Status Admin Acetaminophen 650 MG .STK-MED ONE 12/14 0909 DC PO 12/14 0910 Acetaminophen 650 MG Q6P PRN 12/11 1830 AC 12/15 PO 0618 Amlodipine Besylate 5 MG DAILY 12/11 1300 AC 12/14 PO 0904 Aspirin Buffered 81 MG 12/12 0900 AC 12/14 PO 0904 Atorvastatin Calcium 80 MG 1700 12/11 1700 AC 12/14 PO 1625 Ceftriaxone Sodium 1,000 MG DAILY 12/14 1030 AC 12/14 IV 1107 Heparin Sodium 5,000 UNIT Q8 12/14 1410 AC 12/15 (Porcine) SC 0617 Lisinopril 40 MG DAILY 12/11 0835 AC 12/14 PO 0904 Melatonin 5 MG ONCE ONE 12/14 2200 DC PO 12/14 2201 Last 24 Hrs of Lab/Jonathan Results Last 24 Hrs of Labs/Mics: Laboratory Tests 12/15/17 0615: Sodium Pending, Potassium Pending, Chloride Pending, Carbon Dioxide Pending, Anion Gap Pending, BUN Pending, Creatinine Pending, BUN/Creatinine Ratio Pending Assessment/Plan Assessment: Ms Dan is a 72-year-old woman w/ PMHx of including hypertension, hyperlipidemia, obesity, history of coronary artery disease (myocardial infarction, recurrent angina), renal cell cancer status post nephrectomy, past smoker noncompliance with aspirin presented with acute onset of right-sided leg weakness a few hours prior to presentation to the ER on 12/10/2017. She received approximately half the dose, and was discontinued abruptly since she reported sudden abdominal pain, radiating to back and chest pain. Follow-up MRI revealed small acute infarct involving the left thalamus. This acute finding superimposed upon a few scattered chronic small vessel ischemic changes within the periventricular white matter. No evidence of acute hemorrhage. Etiology in her case is likely from uncontrolled hypertension, and also has several risk factors for stroke. Given her thalamic involvement, and lacunar in nature would require a longer physical rehabilitation. Pertinent lab findings in the last 24 hours: Sodium 140, potassium 4.7, BUN 20, creatinine 0.7. TSH 1.010. Problem list: 1. Acute thalamus infarct-left 2. Urinary tract infection 3. Hypertension 4. Incidental thyroid nodule Plan: - Monitor on telemetry, for any arrythmias - Neurochecks q shift - Formal swallow eval completed, and no dysphagia - Lipid panel checked - She was continued on aspirin and high intensity statin. - Continue ceftriaxone given her symptoms, but changed to cephalexin at the time of discharge. - Short-term acute rehabilitation as per physical therapy. - Continue antihypertensives, especially lisinopril and amlodipine. CODE STATUS -full code Diet -heart healthy diet DVT prophylaxis -ALPS/ sc heparin Discharge [id number] rehabilitation/acute rehabilitation Problem List: 1. Hyperlipidemia 2. Hypertension 3. CVA (cerebral vascular accident) Pain Ratin Pain Location: back Pain Goal: Pain 4 or less Pain Plan: tylenol prn Tomorrow's Labs & Rationales: no labs necessary. Katlyn Arreaga 12/15/17 1132: Attending MD Review Statement Attending Statement Attending MD Statement: examined this patient, discuss w/resident/PA/OPTICAL SALES ASSOCIATE, agreed w/resident/PA/OPTICAL SALES ASSOCIATE, discussed with family, reviewed EMR data (avail), discussed with nursing, discussed with case mgmt, reviewed images, amended to note Attending Assessment/Plan: Patient seen/examined bedside. She is having residual right sided weakness 3/5 both upper and lower extremity. She received tpa for acute CVA. She is on antiplatelet therapy and statin therapy. Needs to control risk factors. BP controlled at discahrge. She needs to follow up with PCP in 1 week of discharge. She is medically stbale for discharge to acute rehab. controlled at discahrge. She needs to follow up with PCP in 1 week of discharge. She is medically stbale for discharge to acute rehab.
[2017-12-15] MEDS ORDERED: KEFLEX500 M1 PO ×2 (09:07→10:27)
[2017-12-15 13:06] VITALS: BP 134/80
== END 2017-12-15 14:37 | DRG 65 ==
LOC: ERH 16:55 → CRI 19:49 → ERHI 19:49 → ENRESERV 21:16 → ENTRNSPT 21:53 → EDTRNSPT 21:55 → EDTRNSPTSTS 21:55 → CRI 22:15 → CMPTRNSPT 22:17 → CRI 12-13 08:41 → 1NO 12-13 22:51 → ENPENDDIS 12-15 11:50 → 1NO 12-15 14:37
PROVIDERS: Internal Medicine Adolescent Medicine; Physician Assistant; Preventive Medicine Public Health & General Preventive Medicine; Student in an Organized Health Care Education/Training Program
DX: I63.8 Other cerebral infarction (principal); G81.91 Hemiplegia, unspecified affecting right dominant side; I47.2 Ventricular tachycardia; N39.0 Urinary tract infection, site not specified; E78.5 Hyperlipidemia, unspecified; I10 Essential (primary) hypertension; Z85.528 Personal history of other malignant neoplasm of kidney; Z90.5 Acquired absence of kidney; I25.119 Atherosclerotic heart disease of native coronary artery with unspecified angina pectoris; I25.2 Old myocardial infarction; E55.9 Vitamin D deficiency, unspecified; Z88.2 Allergy status to sulfonamides; Z90.710 Acquired absence of both cervix and uterus; E04.1 Nontoxic single thyroid nodule; B96.20 Unspecified Escherichia coli [E. coli] as the cause of diseases classified elsewhere
CPT/HCPCS: 1NSP; 70551; CCU; 36415; 36592; 74176; 81001; 82436; 87086; 93005; 93010; 93306; 96374; 97110-GO; 97116-GO; 97161-GP; 97165-GO; 97530-GO; 99291; J0131; J0360; J0696; J1644